=== PATIENT | male | born 1945 | race Caucasian/White ===

== ENCOUNTER 2020-03-11 11:54 | Inpatient (IN) | payer MEDICARE, SELFPAY ==
[2020-03-11] VITALS (14 sets, daily range): BP systolic 116–158; BP diastolic 55–85; PULSE 74–100; RESP 13–20; TEMP 36–36.6; O2SAT 96–100; BMI 27.6
--- NOTE | ~2020-03-11 | XR_ITS ---
EXAMINATION: XR chest 1V portable DATE: 03/11/2020 12:25 INDICATION: Chest pain. TECHNIQUE: A single frontal view of the chest was obtained on 2 radiographs. COMPARISON: Chest 2 views 11/19/2018 FINDINGS: The chest demonstrates clear lungs without pneumonia, pleural effusion, or pneumothorax. Th e heart size is normal. IMPRESSION: 1. No acute cardiopulmonary disease. Reviewed, dictated and finalized at location B. STIAN EDUCATION DIRECTOR
--- NOTE | 2020-03-11 12:03 | PC.NURSE ---
EKG done 1201. TARUN
[2020-03-11 12:20] LABS: Basophils Absolute Auto 0.1 K/mm3 (0.0-0.1); Basophils Percent Auto 0.8 % (0.2-1.2); Eosinophils Absolute Auto 0.4 K/mm3 (0-0.3); Eosinophils Percent Auto 4.6 % (0-4.4); Hematocrit 37.4 % (42.0-52.0); Hemoglobin 12.2 g/dL (14.0-18.0); Immature Granulocyte Absolute 0.04 K/mm3 (0.00-0.031); Immature Granulocyte Percent A 0.5 % (0-0.5); Lymphocytes Absolute Auto 2.46 K/mm3 (0.9-3.2); Lymphocytes Percent Auto 32.6 % (18.3-44.2); Mean Corpuscular HGB Conc 32.6 g/dl (32-36); Mean Corpuscular Volume 92.1 fl (80-100); Mean Platelet Volume 10.1 fl (7.4-10.4); Monocytes Absolute Auto 0.6 K/mm3 (0.1-0.6); Monocytes Percent Auto 7.4 % (2.6-8.5); Neutrophils Absolute Auto 4.1 K/mm3 (1.3-6.7); Neutrophils Percent Auto 54.1 % (45.5-73.1); Platelet Count Result 215 k/mm3 (150-375); Red Blood Count 4.06 M/mm3 (4.6-6.20); Red Cell Distribution Width 12.6 % (11.5-14.5); White Blood Count 7.5 K/mm3 (4.5-10.0)
[2020-03-11 12:29] LABS: Prothrombin Time 13.3 Seconds (11.1-14.7)
[2020-03-11 12:30] LABS: Partial Thromboplastin Time 26.5 SECONDS (22.3-36.8)
[2020-03-11 12:35] LABS: Alanine Aminotransferase 20 U/L (4-50); Albumin Level 4.3 g/dL (3.5-5.1); Alkaline Phosphatase 79 U/L (38-126); Anion Gap 12 mmol/L (8-16); Aspartate Amino Transferase 24 U/L (17-59); Bilirubin,Total 0.4 mg/dL (0.2-1.3); Blood Urea Nitrogen 19 mg/dL (9-20); Calcium 9.2 mg/dL (8.4-10.2); Carbon Dioxide 26 mmol/L (22-30); Chloride 101 mmol/L (98-107); Estimated CRCL calculation 48 ml/min; Estimated Glomerular Filt Rate > 60; Glucose 173 mg/dL (75-110); Potassium 4.3 mmol/L (3.4-5.0); Sodium 139 mmol/L (137-145)
[2020-03-11 12:42] LABS: NT Pro B Type Natriuretic Pept 2550 PG/ML (5-100)
[2020-03-11 12:46] LABS: Magnesium 1.8 mg/dL (1.6-2.3)
[2020-03-11 14:57] LABS: Troponin I < 0.012 ng/mL (0.000-0.034)
--- NOTE | 2020-03-11 15:24 | ED.GENADULT ---
HPI - General Adult General Chief complaint: Chest Pain Stated complaint: V TACH Time Seen by Provider: 03/11/20 11:55 History of Present Illness HPI narrative: Patient is a 75-year-old gentleman who presents the emergency department with chief complaint of ventricular tachycardia. Patient states that he was at a local grocery store and had bought several cases of soda and was loading them into his car after he loaded them the patient stated that he started feeling lightheaded and felt as though his heart was beating fast and felt as though he was going to pass out. Patient called EMS when EMS arrived they found the patient to be in ventricular tachycardia they loaded the patient with amiodarone and then the patient continued to remain in ventricular tachycardia and had a low blood pressure. They proceeded to DC cardiovert the patient after giving him a dose of Versed. The patient is returned to sinus rhythm upon arrival to the emergency department and currently states he feels much better. Patient reports he has history of congestive heart failure reports that he has history of a congenital heart abnormality which she had surgery for as a child. Related Data Allergies Allergy/AdvReac Type Severity Reaction Status Date / Time ibuprofen Allergy Unknown Unknown Verified 03/11/20 12:08 morphine Allergy Unknown Seizure Verified 03/11/20 12:08 prochlorperazine Allergy Unknown Seizure Verified 03/11/20 12:08 Review of Systems Review of Systems: Narrative: CONSTITUTIONAL: Denies fever, chills, or sweats. EYES: Denies visual changes, redness, or discharge. ENT: Denies rhinorrhea, congestion, sore throat, or otalgia. CARDIOVASCULAR: Denies chest pain, palpitations, or edema. RESPIRATORY: Denies cough or dyspnea. GASTROINTESTINAL: Denies abdominal pain, nausea, vomiting, or diarrhea. GENITOURINARY: Denies dysuria or hematuria. SKIN: Denies rash or itching. MUSCULOSKELETAL: Denies back pain, joint pain, or myalgia. NEUROLOGIC: Denies headache, numbness, or weakness. PSYCHIATRIC: Denies anxiety or depression. All systems reviewed & are unremarkable except as noted in HPI and below PMFSH Social History Social History Gender identity (if verbalized by the patient): Male Comments Past medical history history of congestive heart failure Past surgical history cardiac surgery as a child 41-year-old male social history the patient denies illicit drug use Exam Narrative: Exam Narrative: GENERAL: Well-appearing, well-nourished, and in no acute distress. HEAD: Normocephalic, atraumatic. EYES: PERRLA and EOMI. ENT: Nares clear, no rhinorrhea or epistaxis. Mucous membranes moist. NECK: Supple. CHEST: Clear to auscultation. No respiratory distress. HEART: Regular rate and rhythm. No murmur heard. Normal peripheral pulses. ABDOMEN: Soft, nontender, nondistended, normal active bowel sounds. EXTREMITIES: Normal range of motion. No edema. SKIN: Warm, dry, no rash. NEURO: No focal deficits. Alert and oriented x3. PSYCH: Normal mood and affect. Course Course Emergency Course: Patient was started on amiodarone drip was also was given additional magnesium when his mag came back as 1.9. Patient's troponin is negative patient was continued on the amiodarone drip Case was discussed with cardiology and the patient will be admitted to the I am you Vital Signs Vital signs: Vital Signs Temperature 36.6 C 03/11/20 11:55 Pulse Rate 97 03/11/20 11:55 Respiratory Rate 13 03/11/20 11:55 Blood Pressure 116/63 03/11/20 11:55 Pulse Oximetry 99 03/11/20 11:55 Temperature 36.6 C 03/11/20 11:55 Pulse Rate 84 03/11/20 15:37 Respiratory Rate 16 03/11/20 15:26 Blood Pressure 142/55 H 03/11/20 15:37 Pulse Oximetry 98 03/11/20 15:26 Medical Decision Making Vital Signs Vital Signs: Vital Signs Temperature 36.6 C 03/11/20 11:55 Pulse Rate 97 03/11/20 11:55 Respiratory Rate 13 03/11/20 11:55 Blood Pressure 1
[2020-03-11] MEDS: AMIODARONE 360 MG/D5W 200 ML 360 MG/200 ML BAG 33.33 MG IVPB (15:37)
--- NOTE | 2020-03-11 15:42 | ECG_ITS ---
Measurements Intervals [place] Rate: 95 P: 106 MO: 189 QRS: -58 QRSD: 121 T: 78 QT: 383 QTc: 483 Interpretive Statements SINUS RHYTHM INCOMPLETE RIGHT BUNDLE BRANCH BLOCK LEFT ANTERIOR FASCICULAR BLOCK VOLTAGE CRITERIA FOR LVH NONSPECIFIC ST & T-WAVE ABNORMALITY- HIGH LATERAL LEADS BASELINE ARTIFACT- I, III, AVL ABNORMAL ECG Electronically Signed On 03-11-2020 16:18:22 TECHNICAL OPERATIONS VICE PRESIDENT by Dennis Francisco D.O.
[2020-03-11] MEDS: MAGNESIUM SULF 2 GM/WATER 50ML 2 GM/50 ML BAG IVPB (15:45)
[2020-03-11 15:48] LABS: Troponin I 0.684 ng/mL (0.000-0.034)
--- NOTE | 2020-03-11 16:03 | PC.NURSE ---
Dietary tray ordered for pt per request.
--- NOTE | 2020-03-11 18:00 | PM.IMHP ---
H&P: HPI History of Present Illness Date/Time: 03/11/20 18:00 Chief complaint: Ventricular Tachycardia Narrative: Ben Gonzalez is a very pleasant 75-year-old male with congestive heart failure, obstructive sleep apnea on CPAP, type 2 diabetes mellitus, and hypertension who presented to the emergency department earlier today via EMS from a local grocery store parking lot for further treatment and evaluation of ventricular tachycardia. He was in his usual state of health and he and his sister were out grocery shopping today. Not long prior to arrival, while loading the groceries in the car, he suddenly developed heaviness in his chest radiating to the right shoulder and elbow associated with dizziness, shortness of breath, diaphoresis, nausea, and feeling of a pounding and racing heart. Initially he called his doctor's office with his symptoms and he was then told to call 911. On EMS arrival he was in ventricular tachycardia with a heart rate near 220 beats per minute with blood pressures in the 70 systolic. He was then given Versed and was cardioverted with for 100 joules with catholic of sinus tachycardia. He was also loaded with amiodarone and he is being admitted in this setting. After cardioversion his symptoms completely resolved and have not returned. He has never had similar symptoms in the past and has no known history of cardiac dysrhythmia. He does however have a history of chest wall deformities and has had several thoracic surgeries for repair of pectus excavatum. He denies recent change in medication, illicit substance use, exertional chest pain, and syncope. Review of Systems Review of Systems: Narrative: Twelve systems were reviewed with pertinent positives and negatives as per HPI. No fever, chills, or sweats. No recent cold or flu-like symptoms. He states compliance with his CPAP. He believes his diabetes is well controlled. No blurry vision, polydipsia, or polyuria. Except as documented, all other systems were reviewed and are negative. [facility] Past Medical History Medical History (Updated 03/11/20 @ 19:49 by Tammie Baez PA-C) Benign essential tremor Congestive heart failure Echocardiogram in January 2014 was a very technically difficult study showing mild left ventricular enlargement, moderate anterior and septal hypokinesis with an overall ejection fraction estimated 45 to 50%, and mild mitral and tricuspid valve regurgitation. Essential hypertension Hyperlipidemia Obstructive sleep apnea on CPAP Osteoarthritis Rheumatoid arthritis Type 2 diabetes mellitus Surgical History Surgical History (Updated 03/11/20 @ 19:46 by Tammie Baez PA-C) History of bilateral hip replacements History of cardiac catheterization (~2014) Performed at [facility] in [place]. Reportedly clean coronary arteries. History of left knee replacement History of orthopedic surgery Multiple orthopedic surgeries as a child due to defects, including bilateral feet and lower leg surgery and repair of pectus excavatum. History of thoracic surgery Multiple thoracic surgeries to repair pectus excavatum. History of tonsillectomy and adenoidectomy Family History Family History Mother Carcinoma of colon Social History Social History (Updated 03/11/20 @ 19:47 by Tammie Baez PA-C) Social History: Surrogate decision maker: Abbey Gonzalez, sister. Code status: Full code. Smoking status: Never smoker Alcohol intake: never Substance use: never Additional living arrangements comments: Resides in [place] with his sister. He has no children. 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 Gender identity (if verbalized by the patient): Male Meds Home Medications and Allergies Home Medications Medication Instructions Recorded Confirmed Type amlodipine 2.5 mg PO DAILY 03/11/20 03/11/20 History aspirin 8
--- NOTE | 2020-03-11 18:38 | ADMGEN ---
This patient, Ben Gonzalez, was admitted to IMU Room 20503-11-20 at 1805. Patient/family oriented to hospital policies and general routines including ID bracelet, bed and alarms, visiting hours, pain management, procedures, bathroom and other care routines, personal items, smoking policy, room service/diet, and visiting hours. Information on how to activate the Rapid Response Team has been discussed. Patient/Family are encouraged to report perceived risks to care and to ask questions if they do not understand what they are told or what they should do.
[2020-03-11 20:50] LABS: Glucose Point of Care 126 (65-105)
[2020-03-11] MEDS: ATORVASTATIN 40 MG TABLET PO (21:28)
[2020-03-11] MEDS: AMIODARONE 360 MG/D5W 200 ML 360 MG/200 ML BAG 16.67 MG IV CONT (23:20)
[2020-03-12] VITALS (28 sets, daily range): BP systolic 126–156; BP diastolic 61–99; PULSE 68–122; RESP 12–20; TEMP 35.8–36.8; O2SAT 93–100
--- NOTE | 2020-03-12 | ECHO_ITS ---
Patient Info Name: Ben Gonzalez Age: 75 years : 1945 Gender: Male Ht: 69 in Wt: 184 lbs BSA: 2.03 m2 HR: 94 bpm BP: 146 / 61 mmHg Heart Rhythm: Sinus Rhythm Technical Quality: Good Exam Date: 03/12/2020 9:27 AM Exam Location: [facility] Pulmonary Patient Status: Inpatient Admit Date: 03/11/2020 Staff Ordering Physician: Tammie Baez PA-C Cheesemaking Laborer: Valdemar Fleming, ERICKA, RT Attending Provider: Hugo Kulkarni MD Referring Physician: Sasha LEYVA; Exam Type: CA echo doppler color flow Study Info Indications I49.01 - Ventricular fibrillation Complete two-dimensional, color flow and Doppler transthoracic echocardiogram is performed. Strain analysis performed. Summary 1. Complete two-dimensional, color flow and Doppler transthoracic echocardiogram is performed. 2. Left ventricular chamber dimension is moderately enlarged. 3. Left ventricular systolic function is moderately reduced, estimated at 35-40%. 4. Trivial aortic and Mitral regurgitation. Left Ventricle Left ventricular chamber dimension is moderately enlarged. Left ventricular systolic function is moderately reduced, estimated at 35-40%. The left ventricular diastolic function is normal. Right Ventricle Right ventricular chamber dimension is normal. Left Atria Left atrial chamber dimension is normal. Right Atria Right atrial chamber dimension is normal. Aortic Valve The aortic valve is trileaflet. There is mild aortic valve sclerosis. There is trace aortic valve regurgitation. Pulmonic Valve The pulmonic valve is normal. There is mild pulmonic regurgitation. Mitral Valve The mitral valve has normal leaflets. There is trace mitral valve regurgitation. Tricuspid Valve The tricuspid valve leaflets are normal. Pericardium/Pleural The pericardium appears normal. Aorta The aortic root size at the sinus of Valsalva is normal. Left Ventricular Outflow Tract Name Value Normal LVOT 2D LVOT Diameter 2.3 cm LVOT Doppler LVOT Peak Gradient 6 mmHg LVOT Mean Gradient 3 mmHg LVOT VTI 20 cm LVOT VTI/AV VTI Ratio 0.6 LVOT Stroke Volume 84 ml LVOT CO 8.4 l/min LVOT CI 4.1 l/min/m2 Mitral Valve Name Value Normal MV Doppler MV [place] 404 cm/s2 MV PHT 48 ms MV Area (PHT) 4.6 cm2 4.0-5.0 MV Diastolic Function MV E Peak Velocity 67 cm/s MV A Peak Velocity 89 cm/s MV E/A 0.7
[2020-03-12 05:35] LABS: Hematocrit 33.9 % (42.0-52.0); Hemoglobin 11.2 g/dL (14.0-18.0); Mean Corpuscular Hemoglobin 29.6 pg (26-34); Mean Corpuscular Volume 89.7 fl (80-100); Mean Platelet Volume 10.3 fl (7.4-10.4); Platelet Count Result 189 k/mm3 (150-375); Red Blood Count 3.78 M/mm3 (4.6-6.20); Red Cell Distribution Width 12.6 % (11.5-14.5); White Blood Count 5.9 K/mm3 (4.5-10.0)
[2020-03-12 05:53] LABS: Hemoglobin A1C 5.9 % (<5.7)
[2020-03-12 06:02] LABS: Alanine Aminotransferase 17 U/L (4-50); Albumin Level 4.1 g/dL (3.5-5.1); Alkaline Phosphatase 63 U/L (38-126); Anion Gap 8 mmol/L (8-16); Aspartate Amino Transferase 26 U/L (17-59); Bilirubin,Total 0.2 mg/dL (0.2-1.3); Blood Urea Nitrogen 16 mg/dL (9-20); Carbon Dioxide 27 mmol/L (22-30); Chloride 103 mmol/L (98-107); Estimated CRCL calculation 54 ml/min; Estimated Glomerular Filt Rate > 60; Glucose 109 mg/dL (75-110); Magnesium 2.2 mg/dL (1.6-2.3); Phosphorus 4.5 mg/dL (2.5-4.5); Potassium 3.5 mmol/L (3.4-5.0); Sodium 138 mmol/L (137-145)
[2020-03-12] MEDS: AMIODARONE 360 MG/D5W 200 ML 360 MG/200 ML BAG 16.67 MG IV CONT ×2 (06:13→17:56)
--- NOTE | 2020-03-12 09:24 | PM.CNCAR ---
Assessment and Plan Additional Plan This is a 75-year-old man with the background of a nonischemic cardiomyopathy for which she was being treated with aspirin, lisinopril and propranolol. He has done well clinically and developed sustained monomorphic VT yesterday that was symptomatic and had to be terminated electrically outside of the hospital. He presents to [place] in this fashion he does not receive his medical care here at our hospital otherwise. The patient at the moment is clinically quite stable. I will review his echocardiogram and will likely plan for a follow-up coronary angiogram later this afternoon. He just finished eating breakfast so he can't be brought to the cardiac catheterization lab at this time. Since the episode was associated with some chest discomfort 1 has to consider the possibility of ischemically mediated arrhythmias in this patient was otherwise been stable on some fairly standard medical treatment. Obviously with hypertension and dyslipidemia he does have significant risk for coronary disease. For now I would continue his GEORGE-inhibitor, beta-alexey and IV amiodarone. Peter Valdivia MD [facility] History of Present Illness History of Present Illness Consult date/time: 03/12/20 09:24 Reason For Visit: Ventricular Tachycardia Narrative: This is a 75-year-old man I am seeing at the request of the hospitalist since after he was seen in the emergency room and admitted yesterday evening with an episode of ventricular tachycardia that was identified outside of the hospital. The patient was in his usual state of relatively stable health when he was doing some shopping at a local store. He was loading some groceries and packages of soda in his trunk of his car. He suddenly was began to feel lightheaded and presyncopal. He felt that his heart was beating very rapidly. At the same time he had the sense of some very mild retrosternal chest pressure. Because of the symptoms and he thought he was about to pass out he and his sister called 911 and sat down so that he would not fall down. He says when paramedics arrived on the scene he was found to be in ventricular tachycardia. We do have the electrocardiograms that corroborate to sustained monomorphic VT. He was given some amiodarone in the field which did not affect the rhythm. He then was electrically countershock x1 restoring normal sinus rhythm very quickly after which she by report became asymptomatic. He was evaluated in the emergency room and admitted to the IMU. He was been placed on intravenous amiodarone which began yesterday in the ED and is still running intravenously at this time. An echocardiogram has been requested which has yet to be performed at the time of this dictation. The patient states that he has a history of congestive heart failure but can't tell me much in the way of any details about this. He states that he was evaluated by willow machine operator at [facility] in 2015. His primary care doctor is located there as well. He can't really remember the reasons there was concern about his heart but he remembers having an ultrasound he remembers having a stress test and also remembers having a coronary angiogram. He states he was told that he was not found to have any coronary disease but he can't remember anything else about the results of that. He was placed on his current medical regimen and has done well since then he has not been admitted to the hospital with recurrent cardiac problems to the best of his knowledge. Of this rather incomplete history I did telephone his PCP this morning and did receive a little bit more information. He was apparently reporting some symptoms of fatigue and dyspnea and underwent an evaluation which demonstrated a nonischemic cardiomyopathy. He had was not found to have any coronary disease the records according to the physician showed his ejection fraction to be 30% by echo at that time and that he has been stable on
[2020-03-12] MEDS: lisinopriL 20 MG TABLET 40 MG PO (10:25)
[2020-03-12] MEDS: CHOLECALCIFEROL 1,000 UNITS TABLET 2000 UNITS PO (10:25)
[2020-03-12] MEDS: amLODIPine BESYLATE 2.5 MG TABLET PO (10:25)
[2020-03-12] MEDS: POTASSIUM CHLORIDE 10 MEQ TABLET.ER PO ×2 (10:26→17:58)
[2020-03-12] MEDS: ASPIRIN 81 MG CHEWABLE TABLET PO (10:30)
--- NOTE | 2020-03-12 11:23 | PM.IMPN ---
Progress Note: A&P Assessment and Plan (1) Hyperlipidemia: Qualifiers: Hyperlipidemia type: mixed hyperlipidemia Qualified Code(s): E78.2 - Mixed hyperlipidemia Code(s): E78.5 - Hyperlipidemia, unspecified Status: Acute Assessment and Plan: continue aspirin 81, Lipitor 40 mg (2) Elevated troponin: Code(s): R77.8 - Other specified abnormalities of plasma proteins Status: Acute Assessment and Plan: - Likely secondary to cardioversion, ventricular tachycardia. - left heart catheterization showed 40% lesion in left main coronary distal, 40% lesion in LAD diagonal bifurcation, circumflex and right coronary clean. Catheterization by Dr. Peter Valdivia. (3) Type 2 diabetes mellitus: Qualifiers: Diabetes mellitus complication status: without complication Diabetes mellitus group home insulin use: without group home use Qualified Code(s): E11.9 - Type 2 diabetes mellitus without complications Code(s): E11.9 - Type 2 diabetes mellitus without complications Status: Acute Assessment and Plan: Home metformin holding after catheterization IV contrast, sliding scale insulin for now (4) Essential hypertension: Code(s): I10 - Essential (primary) hypertension Status: Acute Assessment and Plan: continue amlodipine, lisinopril (5) Obstructive sleep apnea on CPAP: Code(s): G47.33 - Obstructive sleep apnea (adult) (pediatric); Z99.89 - Dependence on other enabling machines and devices Status: Acute (6) Ventricular tachycardia: Code(s): I47.2 - Ventricular tachycardia Status: Acute Assessment and Plan: -Status post cardioversion -Continue amiodarone drip - patient will need AICD placement for bifascicular block with ventricular tachycardic episodes. EKG shows left anterior fascicular block and incomplete right bundle-branch block, otherwise sinus rhythm - continue propanolol she is also for tremors (7) Congestive heart failure: Qualifiers: Heart failure chronicity: chronic Heart failure type: systolic Qualified Code(s): I50.22 - Chronic systolic (congestive) heart failure Code(s): I50.9 - Heart failure, unspecified Status: Acute Assessment and Plan: Lasix 40 mg b.i.d., potassium supplement Additional Plan patient will need to be transferred for AICD placement, patient's preference to [facility] DVT prophylaxis: Lovenox Code status: Full code Disposition: IMU, pending transfer Time Spent With Patient Time with patient: 25 - 35 minutes Subjective Date/time seen: 03/12/20 11:23 Patient examined. He has no complaints. Left heart catheterization LV dilated severe global systolic hypocontractility, ejection fraction around 30%. left main coronary artery 40% lesion distal segment, LAD diagonal bifurcation 40-50%. circumflex and right coronary artery had no disease. Patient has no stentable lesions. Patient needs AICD, will try to transfer patient to [facility]. Bed finding will be difficult as most hospitals are at capacity. currently working [facility]. Review of Systems Review of Systems: All systems reviewed & are unremarkable except as noted in HPI and below Exam Narrative: Exam Narrative: - GENERAL: No acute distress. Well-nourished. - EYES: EOMI. Anicteric. - HENT: Moist mucous membranes. No scleral icterus. - LUNGS: Clear to auscultation bilaterally, no wheezing, rhonchi, or rales. - CARDIOVASCULAR: Regular rate and rhythm. No murmur. No JVD. - ABDOMEN: Soft, non-tender and non-distended. No palpable masses. - EXTREMITIES: No edema. Peripheral pulses 2+. Non-tender. - NEUROLOGIC: No focal neurological deficits. CN II-XII grossly intact. - PSYCHIATRIC: Awake, Alert and oriented x 3. Appropriate mood and affect. - SKIN: No rashes or lesions. Warm. - LYMPH: No cervical lymphadenopathy. Objective Data Vital Signs Vital Signs:
--- NOTE | 2020-03-12 14:52 | WPDMODSED ---
Moderate Sedation Note-Pt Data Patient Data Diagnosis: Nonischemic cardiomyopathy ventricular tachycardia Present Complaint: out of hospital VT arrest Procedure to be performed/Plan: left heart catheterization Allergies Allergy/AdvReac Type Severity Reaction Status Date / Time ibuprofen Allergy Unknown Unknown Verified 03/11/20 12:08 morphine Allergy Unknown Seizure Verified 03/11/20 12:08 prochlorperazine Allergy Unknown Seizure Verified 03/11/20 12:08 Home Medications Medication Instructions Recorded Confirmed Type amlodipine 2.5 mg PO DAILY 03/11/20 03/11/20 History aspirin 81 mg PO DAILY 03/11/20 03/11/20 History atorvastatin 40 mg PO HS 03/11/20 03/11/20 History cholecalciferol (vitamin D3) 50 mcg PO DAILY 03/11/20 03/11/20 History [Vitamin D3] fluticasone propionate 2 spray INTRANASAL DAILY 03/11/20 03/11/20 History furosemide 40 mg PO BID 03/11/20 03/11/20 History lisinopril 40 mg PO DAILY 03/11/20 03/11/20 History metformin 500 mg PO TID 03/11/20 03/11/20 History potassium chloride 10 meq PO TID 03/11/20 03/11/20 History propranolol [Inderal] 10 mg PO TID PRN 03/11/20 03/11/20 History tramadol 50 mg PO Q6H PRN 03/11/20 03/11/20 History Current Medications: Active Medications Amlodipine Besylate (Amlodipine Besylate 2.5 Mg Tablet) 2.5 mg PO DAILY [facility] Last Admin: 03/12/20 10:25 Dose: 2.5 mg Documented by: Aspirin (Aspirin 81 Mg Chewable Tablet) 81 mg PO DAILY@0800 [facility] Last Admin: 03/12/20 10:30 Dose: 81 mg Documented by: Atorvastatin Calcium (Atorvastatin 40 Mg Tablet) 40 mg PO HS [facility] Last Admin: 03/11/20 21:28 Dose: 40 mg Documented by: Dextrose (Dextrose 50% 25 Gm/50 Ml Syringe) 12.5 gm IV PUSH PRN PRN; Protocol PRN Reason: Hypoglycemia Enoxaparin Sodium (Enoxaparin 40 Mg/0.4 Ml Syringe) 40 mg SUB-Q DAILY [facility] Last Admin: 03/12/20 10:26 Dose: Not Given Documented by: Fluticasone Propionate (Fluticasone Propionate 0.05% Na Spr 16 Gm Btl (*Bkc)) 2 spray NASAL DAILY [facility] Last Admin: 03/12/20 10:28 Dose: Not Given Documented by: Furosemide (Furosemide 40 Mg Tablet) 40 mg PO BID [facility] Last Admin: 03/12/20 10:26 Dose: Not Given Documented by: Glucagon (Glucagon For Inj 1 Mg Vial) 1 mg IM PRN PRN; Protocol PRN Reason: Hypoglycemia Glucose (Glucose Oral Gel 15 Gm Of Glucse In 37.5 Gm Tube) 15 gm PO PRN PRN; Protocol PRN Reason: Hypoglycemia Dextrose (Dextrose 5% 1,000 Ml) 1,000 mls @ 100 mls/hr IVPB PRN PRN; Protocol PRN Reason: Hypoglycemia Amiodarone HCl/Dextrose (Nexterone 360 Mg/D5w 200 Ml) 360 mg in 200 mls @ 16.667 mls/hr IV CONT .Q12H [facility] Last Admin: 03/12/20 06:13 Dose: 0.5 mg/min, 16.67 mls/hr Documented by: Insulin Aspart (Insulin Aspart (*Bkc) 100 Units/Ml) 2 - 5 units SUB-Q TIDWM [facility]; Protocol Last Admin: 03/12/20 10:24 Dose: Not Given Documented by: Lisinopril (Lisinopril 20 Mg Tablet) 40 mg PO DAILY [facility] Last Admin: 03/12/20 10:25 Dose: 40 mg Documented by: Potassium Chloride (Potassium Chloride 10 Meq Tablet.Er) 10 meq PO TID [facility] Last Admin: 03/12/20 10:26 Dose: 10 meq Documented by: Propranolol HCl (Propranolol Hcl 10 Mg Tablet) 10 mg PO TID PRN PRN Reason: TREMORS Tramadol HCl (Tramadol Hcl (*Crx) 50 Mg Tablet) 50 mg PO Q6H PRN PRN Reason: Pain Vitamin D (Cholecalciferol 1,000 Units Tablet) 2,000 units PO DAILY [facility] Last Admin: 03/12/20 10:25 Dose: 2,000 units Documented by: Sedation/Anesthesia: No previous sedation/anesthesia problems (including family history). [facility] Past Medical History Medical History (Updated 03/11/20 @ 19:49 by Tammie Baez PA-C) Benign essential tremor Congestive heart failure Echocardiogram in January 2014 was a very technically difficult study showing mild left ventricular enlargement, moderate anterior and septal hypokinesis with an overall ejection fraction estimated 45 to 50%, and mild mitral and tricuspid valve regurgitation. Essential hypertension Hyperlipidemia Obstructive sleep apnea on CPAP
--- NOTE | 2020-03-12 15:38 | P.PCNCC_ITS ---
Cardiac Cath Procedure Note Date of procedure:: 03/12/20 Performing physician:: Peter Valdivia MD Indication:: history of nonischemic cardiomyopathy admission with sustained ventricular tachycardia requiring electrical termination Brief clinical history:: this is a 75-year-old patient who receives his medical care in [place]. He was at a local store shopping and became presyncopal with tachycardia in the parking lot. 911 was was called and he was found to be in sustained monomorphic ventricular tachycardia which was terminated electrically in the field. There was a troponin rise following this event and he is now being brought for catheterization. Procedure Procedure performed:: Left heart catheterization with coronary angiography and left ventriculography Sedation/Medication given:: fentanyl 50 mg Versed 2 mg case start time 3:13 p.m. case end time 3:30 p.m. sedation provided by Isabelle Johnson RN, trained observer Access site:: right femoral artery Estimated blood loss:: 10-15 cc Procedure note:: patient was brought to the cardiac catheterization lab in the postabsorptive state the right femoral triangle was prepared in the usual fashion. Anesthesia was provided with 1% lidocaine infiltrated locally. Using the modified Seldinger technique the femoral artery was punctured and a 5 Latvian vascular sheath was placed. Left heart catheterization was then carried out. I used a 5 Latvian FL4 catheter to engage inject the left coronary artery in multiple projections. After this the right coronary was engaged and injected using a standard 5 Latvian JR4 catheter. Following the coronary angiograms the left ventricle was examined in the GARCIA projection using a angled pigtail catheter and left-sided hemodynamics were documented. The patient was then taken off the table into the holding area for manual sheath removal there were no signs of any procedural complications and no sign of a groin hematoma upon leaving the chemical laboratory scientist. Findings:: Hemodynamics: Central aortic pressure is 1 56/64 left ventricle 154/0 end-diastolic 11. There is no significant gradient on pullback across the aortic valve. Left ventricle: The LV is moderately dilated there is severe global systolic hypo contractility the ejection fraction I would visually estimate to be in the vicinity of 30%. Left main coronary artery is Essentially patent but has a 40% lesion in the distal segment. the left anterior descending moderate caliber artery extending down to and around the apex. The LAD diagonal bifurcation is very mild atherosclerotic stenosis no more than about 40-50% in any projection. The circumflex artery is moderate to large in caliber is remarkable for minimal luminal irregularity proximally but no significant lesions are identified. Right coronary artery is large in caliber dominant to posterior wall giving rise to several large posterolateral branches as well. The right coronary artery is angiographically free of disease. Conclusion:: 1. Diagnosis of nonischemic cardiomyopathy with significant depression in LV systolic function. This diagnosis was recently made in 2015 2. minimal plaquing in the left main and mid LAD but no flow-limiting coronary lesions are identified Peter Valdivia MD [facility]
--- NOTE | 2020-03-12 15:54 | PM.PNCARD ---
Progress Note: A&P Additional Plan 75-year-old man with significant nonischemic cardiomyopathy. He has been stable on GEORGE-inhibitor and beta-alexey therapy for 5 years. He presented with abrupt monomorphic ventricular tachycardia which was symptomatic and cardioverted electrically in the field. Catheterizations afternoon demonstrates minimal nonobstructive lesions in the left coronary artery and no right coronary disease. The patient in my opinion requires defibrillator implantation for secondary prevention. He will need to be transferred for electrophysiology consultation and implantation. He each receives the rest of his medical care at [facility] in [place] and his preference is to be transferred there for nondenominational further consultation and treatment. We will attempt to arrange transfer for this purpose. If for some reason they have no bed availability we will consider transfer to [place] and/or [facility]. Peter Valdivia MD [facility] Subjective Date/time seen: Date of service: 03/12/20 15:54 Interval history: 75-year-old man with: Nonischemic cardiomyopathy Out of hospital ventricular tachycardia which was sustained and required electrical cardioversion Left heart catheterization today demonstrating minimal, nonobstructive coronary artery disease. Exam Const: General: comfortable and no acute distress HENMT: Mouth: Yes moist mucous membranes Eyes: Sclera: sclerae normal Pupils: Equal, round and reactive pupils present Neck: Neck: supple and no JVD Thyroid: thyroid normal Resp: Effort & Inspection: normal respiratory effort Auscultation: clear to auscultation bilaterally Cardio: Rate: regular rate Rhythm: regular rhythm Other: PMI enlarged and displaced no audible murmur GI: GI Palp: Yes Soft to palpation Auscultation: normal bowel sounds Skin: General skin exam: normal color Neuro: Cognition (Neuro): normal cognition Extrem: General: normal to inspection Objective Data Vital Signs Vital Signs: Vital Signs - 24 hr 03/11/20 16:12 03/11/20 17:46 03/11/20 18:23 Temperature Pulse Rate 87 80 83 Respiratory Rate 20 18 15 Blood Pressure 141/60 H 127/76 127/76 Pulse Oximetry 100 98 97 03/11/20 19:28 03/11/20 20:00 03/11/20 22:00 Temperature 36.0 C L Pulse Rate 81 74 76 Respiratory Rate 18 Blood Pressure 135/66 Pulse Oximetry 96 96 03/11/20 23:03/12/20 00:00 03/12/20 02:00 Temperature 36.1 C L Pulse Rate 86 71 73 Respiratory Rate 16 Blood Pressure 128/85 Pulse Oximetry 93 03/12/20 04:00 03/12/20 06:00 03/12/20 06:13 Temperature 36.1 C L Pulse Rate 68 72 89 Respiratory Rate 16 Blood Pressure 146/61 H 146/61 H Pulse Oximetry 100 03/12/20 08:00 03/12/20 10:00 03/12/20 12:00 Temperature 36.5 C 36.4 C L Pulse Rate 122 H 104 H 82 Respiratory Rate 14 12 Blood Pressure 151/64 H 135/76 Pulse Oximetry 98 97 03/12/20 14:00 03/12/20 14:57 Temperature Pulse Rate 76 Respiratory Rate Blood Pressure Pulse Oximetry 97 Intake/Output Intake/Output: Intake & Output 03/09/20 03/10/20 03/11/20 03/12/20 23:59 23:59 23:59 23:59 Intake Total 250 690 Output Total 1650 Balance 250 -960 Meds/Results Medications: Active Medications Generic Name Dose Route Start Last Admin Trade Name Freq PRN Reason Stop Dose Admin Amlodipine Besylate 2.5 mg 03/12/20 09:00 03/12/20 10:25 Amlodipine Besylate 2.5 Mg Tablet PO 2.5 mg DAILY PRIYANKA Administration Aspirin 81 mg 03/12/20 08:00 03/12/20 10:30 Aspirin 81 Mg Chewable Tablet PO 81 mg DAILY@0800 PRIYANKA Administration Atorvastatin Calcium 40 mg 03/11/20 21:00 03/11/20 21:28 Atorvastatin 40 Mg Tablet PO 40 mg HS PRIYANKA Administration Dextrose 12.5 gm 03/11/20 19:56 Dextrose 50% 25 Gm/50 Ml Syringe IV PUSH PRN PRN Hypoglycemia Protocol Enoxaparin Sodium 40 mg 03/12/20 09:00 03/12/20 10:26 Enoxaparin 40 Mg/0.4
[2020-03-12] MEDS: traMADol HCL (*CRX) 50 MG TABLET PO (16:47)
[2020-03-12] MEDS: ATORVASTATIN 40 MG TABLET PO (17:58)
[2020-03-12 18:12] LABS: Glucose Point of Care 100 (65-105)
[2020-03-12 21:01] LABS: Glucose Point of Care 129 (65-105)
[2020-03-13] VITALS: BP 157/80; PULSE 67; PULSE 69; PULSE 79; RESP 16; TEMP 36.4; O2SAT 97
[2020-03-13 02:00] VITALS: PULSE 65
[2020-03-13 04:00] VITALS: BP 118/55; PULSE 66; PULSE 67; RESP 16; TEMP 36; O2SAT 98
[2020-03-13] MEDS: AMIODARONE 360 MG/D5W 200 ML 360 MG/200 ML BAG 16.67 MG IV CONT (04:45)
[2020-03-13 06:00] VITALS: PULSE 61
[2020-03-13 08:00] VITALS: BP 158/70; PULSE 72; PULSE 80; RESP 18; TEMP 36.3; O2SAT 100
--- NOTE | 2020-03-13 08:12 | PM.DS ---
DS: Admitting Diagnosis Admitting Diagnosis Admitting Diagnosis: Ventricular Tachycardia DS: Discharge Diagnosis Discharge Diagnosis (1) Hyperlipidemia: Qualifiers: Hyperlipidemia type: mixed hyperlipidemia Qualified Code(s): E78.2 - Mixed hyperlipidemia Code(s): E78.5 - Hyperlipidemia, unspecified Status: Acute Assessment and Plan: continue aspirin 81, Lipitor 40 mg (2) Elevated troponin: Code(s): R77.8 - Other specified abnormalities of plasma proteins Status: Acute Assessment and Plan: - Likely secondary to cardioversion and ventricular tachycardia. - left heart catheterization showed 40% lesion in left main coronary distal, 40% lesion in LAD diagonal bifurcation, circumflex and right coronary clean. Catheterization by Dr. Peter Valdivia. (3) Type 2 diabetes mellitus: Qualifiers: Diabetes mellitus complication status: without complication Diabetes mellitus intermodal dispatcher insulin use: without assisted use Qualified Code(s): E11.9 - Type 2 diabetes mellitus without complications Code(s): E11.9 - Type 2 diabetes mellitus without complications Status: Acute Assessment and Plan: Home metformin holding after catheterization IV contrast, sliding scale insulin for now (4) Essential hypertension: Code(s): I10 - Essential (primary) hypertension Status: Acute Assessment and Plan: continue amlodipine, lisinopril (5) Obstructive sleep apnea on CPAP: Code(s): G47.33 - Obstructive sleep apnea (adult) (pediatric); Z99.89 - Dependence on other enabling machines and devices Status: Acute (6) Ventricular tachycardia: Code(s): I47.2 - Ventricular tachycardia Status: Acute Assessment and Plan: -Status post cardioversion -Continue amiodarone drip - patient will need AICD placement for bifascicular block with ventricular tachycardic episodes. EKG shows left anterior fascicular block and incomplete right bundle-branch block, otherwise sinus rhythm - continue propanolol for tremors as well (7) Congestive heart failure: Qualifiers: Heart failure chronicity: chronic Heart failure type: systolic Qualified Code(s): I50.22 - Chronic systolic (congestive) heart failure Code(s): I50.9 - Heart failure, unspecified Status: Acute Assessment and Plan: Lasix 40 mg b.i.d., potassium supplement DS: Summary Hospital Course Reason for hospitalization: Ventricular tachycardia Hospital Course: This document to serve as transfer summary. Patient is a 75-year-old male with past medical history CAD,CHF, type 2 diabetes, hypertension, history of pectus excavatum presented to the ED with palpitations and diaphoresis. Patient had ventricular tachycardia status post cardioversion x1 with 100 joules and put on amiodarone drip. He had elevated troponin and subsequent left heart catheterization by Dr. Peter Valdivia who found mild disease in LAD otherwise clear circumflex and right coronary. No stents were placed. EKG shows bifascicular block with left anterior fascicular block and incomplete right bundle-branch block, otherwise normal sinus rhythm. Patient will need AICD placement. Dr. Valdivia had discussed case with Dr. Godwin at [facility] who has accepted patient for transfer for AICD placement. Patient will need to follow-up with cardiology. Only new medication is amiodarone drip, patient to be transferred to [facility] 03/13/2020. Time Spent with Patient Time attestation: Total time spent providing and/or coordinating discharge services:35 Exam Narrative: Exam Narrative: - GENERAL: No acute distress. Well-nourished. - EYES: EOMI. Anicteric. - HENT: Moist mucous membranes. No scleral icterus. Excessive neck skin. - CHEST: Pectus excavatum, scars from surgery - LUNGS: Clear to auscultation bilaterally, no wheezing, rhonchi, or rales. - CARDIOVASCULAR: Regular r
[2020-03-13 08:43] LABS: Glucose Point of Care 106 (65-105)
--- NOTE | 2020-03-13 08:49 | PM.TDS ---
Transfer Discharge Sum: Prov Provider Date of admission: 03/11/20 15:20 Primary care physician: W[employer]HOUSE UNLOADER PHYSICIAN Admitting clinician: Vishal Kulkarni MD Consults: 03/11/20 15:22 Consult to Physician Routine Comment: Consulting Provider: Dr. Peter Valdivia Reason for consultation: ventricular tachycardia Has provider been notified: Yes DS: Admitting Diagnosis Admitting Diagnosis Admitting Diagnosis: Ventricular Tachycardia DS: Discharge Diagnosis Discharge Diagnosis (1) Hyperlipidemia: Qualifiers: Hyperlipidemia type: mixed hyperlipidemia Qualified Code(s): E78.2 - Mixed hyperlipidemia Code(s): E78.5 - Hyperlipidemia, unspecified Status: Acute Assessment and Plan: continue aspirin 81, Lipitor 40 mg (2) Elevated troponin: Code(s): R77.8 - Other specified abnormalities of plasma proteins Status: Acute Assessment and Plan: - Likely secondary to cardioversion and ventricular tachycardia. - left heart catheterization showed 40% lesion in left main coronary distal, 40% lesion in LAD diagonal bifurcation, circumflex and right coronary clean. Catheterization by Dr. Peter Valdivia. (3) Type 2 diabetes mellitus: Qualifiers: Diabetes mellitus manager intermediate insulin use: without retirement use Diabetes mellitus complication status: without complication Qualified Code(s): E11.9 - Type 2 diabetes mellitus without complications Code(s): E11.9 - Type 2 diabetes mellitus without complications Status: Acute Assessment and Plan: Home metformin holding after catheterization IV contrast, sliding scale insulin for now (4) Essential hypertension: Code(s): I10 - Essential (primary) hypertension Status: Acute Assessment and Plan: continue amlodipine, lisinopril (5) Obstructive sleep apnea on CPAP: Code(s): G47.33 - Obstructive sleep apnea (adult) (pediatric); Z99.89 - Dependence on other enabling machines and devices Status: Acute (6) Ventricular tachycardia: Code(s): I47.2 - Ventricular tachycardia Status: Acute Assessment and Plan: -Status post cardioversion -Continue amiodarone drip - patient will need AICD placement for bifascicular block with ventricular tachycardic episodes. EKG shows left anterior fascicular block and incomplete right bundle-branch block, otherwise sinus rhythm - continue propanolol for tremors as well (7) Congestive heart failure: Qualifiers: Heart failure type: systolic Heart failure chronicity: chronic Qualified Code(s): I50.22 - Chronic systolic (congestive) heart failure Code(s): I50.9 - Heart failure, unspecified Status: Acute Assessment and Plan: Lasix 40 mg b.i.d., potassium supplement Transfer Discharge Sum: Med Medications Active and Home Medications: Home Medications amlodipine 2.5 mg PO DAILY 03/11/20 [History Confirmed 03/11/20] aspirin 81 mg PO DAILY 03/11/20 [History Confirmed 03/11/20] atorvastatin 40 mg PO HS 03/11/20 [History Confirmed 03/11/20] cholecalciferol (vitamin D3) [Vitamin D3] 50 mcg PO DAILY 03/11/20 [History Confirmed 03/11/20] fluticasone propionate 2 spray INTRANASAL DAILY 03/11/20 [History Confirmed 03/11/20] furosemide 40 mg PO BID 03/11/20 [History Confirmed 03/11/20] lisinopril 40 mg PO DAILY 03/11/20 [History Confirmed 03/11/20] metformin 500 mg PO TID 03/11/20 [History Confirmed 03/11/20] potassium chloride 10 meq PO TID 03/11/20 [History Confirmed 03/11/20] propranolol [Inderal] 10 mg PO TID PRN 03/11/20 [History Confirmed 03/11/20] tramadol 50 mg PO Q6H PRN 03/11/20 [History Confirmed 03/11/20] Active Medications Amlodipine Besylate (Amlodipine Besylate 2.5 Mg Tablet) 2.5 mg PO DAILY [facility] Last Admin: 03/12/20 10:25 Dose: 2.5 mg Documented by: Aspirin (Aspirin 81 Mg Chewable Tablet) 81 mg PO DAILY@0800 [facility] Last Admin: 03/12/20 10:30 Dose: 81 mg Documented by: Atorv
[2020-03-13] MEDS: POTASSIUM CHLORIDE 10 MEQ TABLET.ER PO (09:12)
[2020-03-13] MEDS: FUROSEMIDE 40 MG TABLET PO (09:13)
[2020-03-13] MEDS: ENOXAPARIN 40 MG/0.4 ML SYRINGE SUB-Q (09:13)
[2020-03-13] MEDS: CHOLECALCIFEROL 1,000 UNITS TABLET 2000 UNITS PO (09:13)
[2020-03-13] MEDS: lisinopriL 20 MG TABLET 40 MG PO (09:13)
[2020-03-13] MEDS: amLODIPine BESYLATE 2.5 MG TABLET PO (09:14)
[2020-03-13] MEDS: ASPIRIN 81 MG CHEWABLE TABLET PO (09:15)
[2020-03-13 10:16] VITALS: PULSE 79
== END 2020-03-13 11:13 | disposition short-term general hospital (02) | DRG 287 ==
LOC: ANHED 15:46 → ANHIMU 03-12 00:06
PROVIDERS: Physician Assistant; Specialist; Admitting Provider Internal Medicine; Emergency Provider Emergency Medicine; Visit Provider Student in an Organized Health Care Education/Training Program
PROC: 4A023N7 Measurement of Cardiac Sampling and Pressure, Left Heart, Percutaneous Approach (ICD-10-PCS; CPT 93452; principal; 2020-03-12 15:00)
DX: I47.2 Ventricular tachycardia (principal); I42.8 Other cardiomyopathies; I50.22 Chronic systolic (congestive) heart failure; I11.0 Hypertensive heart disease with heart failure; I25.10 Atherosclerotic heart disease of native coronary artery without angina pectoris; R77.8 Other specified abnormalities of plasma proteins; E78.2 Mixed hyperlipidemia; G47.33 Obstructive sleep apnea (adult) (pediatric); M06.9 Rheumatoid arthritis, unspecified; E11.9 Type 2 diabetes mellitus without complications; G25.0 Essential tremor; Z96.652 Presence of left artificial knee joint; Z79.82 Long term (current) use of aspirin; Z79.84 Long term (current) use of oral hypoglycemic drugs; Z79.899 Other long term (current) drug therapy; Z99.89 Dependence on other enabling machines and devices
CPT/HCPCS: 36415; 71045; 80053; 83036; 83735; 83880; 84100; 84443; 84484; 85025; 85027; 85610; 85730; 93005; 93306; 93458; 99285; A9270; C1887; C1894; J0282; J1644; J1650; J2250; J3010; J3475; J7040

== ENCOUNTER → 2020-06-23 10:36 | Outpatient (CLI) | payer MEDICARE, SELFPAY ==
--- NOTE | ~2020-06-23 | XR_ITS ---
XR chest 2V DATE: 06/23/2020 11:17 INDICATION: Bronchitis. Heart failure. TECHNIQUE: 2 views COMPARISON: 03/11/2020 portable AP chest 11/19/2018 2 view chest FINDINGS: There is pectus excavatum. Cardiomegaly. Left-sided pacemaker device with leads overlying right atrium and right ventricle. Aortic calcification and mild unfolding. No pulmonary infiltrate or consolidation, pleural effusion or pulmonary vascular congestion or pneumo thorax is detected. Thoracic and lumbar scoliosis. IMPRESSION: Cardiomegaly Aortic atherosclerosis Left-sided dual-lead pacemaker Reviewed, dictated and finalized at location A. ICE RN
== END ==
PROVIDERS: Visit Provider Internal Medicine Pulmonary Disease
DX: I50.9 Heart failure, unspecified (principal); J98.09 Other diseases of bronchus, not elsewhere classified; I70.0 Atherosclerosis of aorta; Z95.0 Presence of cardiac pacemaker
CPT/HCPCS: 71046

== ENCOUNTER 2020-11-11 09:02 | Inpatient (IN) | payer MEDICARE, SELFPAY ==
[2020-11-11] VITALS (11 sets, daily range): BP systolic 117–153; BP diastolic 56–81; PULSE 80–106; RESP 16–20; TEMP 36.1–36.8; O2SAT 97–100; BMI 23.2
--- NOTE | ~2020-11-11 | XR_ITS ---
XR chest 1V portable DATE: 11/11/2020 10:07 INDICATION: Dyspnea. Weakness. Portable upright AP views TECHNIQUE: Portable AP chest on 11/11/2020 at 1002 hours COMPARISON: June 23, 2020 2 view chest FINDINGS: Left cardiac pacemaker with leads overlying right atrium and right ventricle. Cardiomegaly. Aortic calcification. No pulmonary infiltrate or consolidation, pleural effusion or pulmonary vascular congestion or pneumo thorax. IMPRESSION: Cardiomegaly and aortic atherosclerosis Dual-lead left-sided pacemaker device No active pulmonary disease Reviewed, dictated and finalized at location A.
--- NOTE | ~2020-11-11 | US_ITS ---
EXAMINATION: US renal BI DATE: 11/11/2020 16:49 INDICATION: Gas in the bladder. TECHNIQUE: Multiple ultrasound grayscale images of the kidneys were obtained. COMPARISON: CT dated 11/11/2020 FINDINGS: The right kidney measures 10.3 x 4.8 x 4.7 cm. The left kidney measures 10.0 x 4.0 x 5.0 cm. The kidn eys demonstrate normal echogenicity. There is no hydronephrosis in either kidney. No stones identifi ed. Marked enlargement of the prostate which impresses upon the base of the bladder. The visualized p ortion of the prostate projecting into the bladder measures at least 6.3 x 5.3 cm maximal transaxial dimensions. The bladder is otherwise unremarkable. IMPRESSION: 1. Normal kidneys and bladder. 2. Marked prostatomegaly. Reviewed, dictated and finalized at location A.
--- NOTE | ~2020-11-11 | CT_ITS ---
EXAMINATION: CT abdomen pelvis w con DATE: 11/11/2020 10:25 INDICATION: Abdominal pain. TECHNIQUE: Computed tomography (CT) of the abdomen and pelvis was performed with 100 cc Omnipaque 350 intravenous contrast. Automated exposure control and iterative reconstruction technique were employe d. Exam dose: 567.01 mGy-cm total exam DLP. COMPARISON: None. FINDINGS: There is mild infiltrate or atelectasis of the middle lobe and both lower lobes, most promi nent at the dependent right lower lobe. Cardiomegaly. No pericardial or pleural effusion. Right atrial and right ventricular pacemaker leads. There are numerous dependent gallstones. No gallbladder wall thickening or pericholecystic fluid or f at stranding is evident. No bile duct or pancreatic duct dilatation. No hepatic space-occupying mass lesion. Normal splenic size. Normal morphology of the adrenal glands. There is suggestion of occasional bilateral renal cysts, most of which are relatively small, the lar gest measuring up to approximately 9 mm, on the left. No urinary tract calculus or hydroureteronephrosis. There is atherosclerotic calcification of the abdominal aorta and branches but no aneurysm. No intrap eritoneal or retroperitoneal or pelvic mass lesion or adenopathy or ascites is evident. Normal appendix. There is a prominent amount of fecal material in the rectum and colon Diverticulosis of the sigmoid and descending colon; no CT evidence of diverticulitis. No bowel obstruction, bowel wall thickening, pneumatosis or intraperitoneal free air. Prominent prostatomegaly. There is a moderate amount of air in the bladder lumen. No bladder wall thickening or fat stranding a round the bladder is evident. If there has been recent instrumentation, this likely accounts for the urinary bladder. Otherwise consider bladder infection or fistula. There is extensive streak artifact through the pelvic area due to bilateral hip replacements. Multilevel degenerative disc disease of the lumbosacral spine with associated mild retrolisthesis at L3-4. Prominent degenerative change at the apophyseal joints of the lumbar spine. No suspicious osteolytic or osteoblastic lesions are noted. IMPRESSION: Cholelithiasis Bilateral subcentimeter renal cysts Normal appendix Diverticulosis of left colon; no CT evidence of diverticulitis Prominent prostatomegaly Air in the urinary bladder; this may be due to instrumentation; otherwise consider bladder infection or fistula Cardiomegaly Mild infiltrate or atelectasis in the lower lung zones Reviewed, dictated and finalized at Location [facility]. Reviewed, dictated and finalized at location A. IMPRESSION: Cholelithiasis Bilateral subcentimeter renal cysts Normal appendix Diverticulosis of left colon; no CT evidence of diverticulitis Prominent prostatomegaly Air in the urinary bladder; this may be due to instrumentation; otherwise consi ruben bladder infection or fistula Cardiomegaly Mild infiltrate or atelectasis in the lower lung zones
--- NOTE | 2020-11-11 09:11 | ECG_ITS ---
Measurements Intervals [place] Rate: 97 P: 74 WI: 233 QRS: -58 QRSD: 181 T: 98 QT: 372 QTc: 474 Interpretive Statements ATRIAL SENSE- ELECTRONIC VENTRICULAR PACEMAKER BASELINE ARTIFACT- II, III, AVR, AVL, AVF, V2-V6 NO FURTHER INTERPRETATION IS POSSIBLE ATYPICAL ECG Electronically Signed On 11-11-2020 12:03:21 CDT by Dennis Francisco D.O.
[2020-11-11 09:24] LABS: Basophils Percent Auto 0.3 % (0.2-1.2); Eosinophils Absolute Auto 0.7 K/mm3 (0-0.3); Eosinophils Percent Auto 6.2 % (0-4.4); Hematocrit 34.4 % (42.0-52.0); Hemoglobin 11.1 g/dL (14.0-18.0); Immature Granulocyte Absolute 0.11 K/mm3 (0.00-0.031); Immature Granulocyte Percent A 0.9 % (0-0.5); Lymphocytes Absolute Auto 0.79 K/mm3 (0.9-3.2); Lymphocytes Percent Auto 6.6 % (18.3-44.2); Mean Corpuscular HGB Conc 32.3 g/dl (32-36); Mean Corpuscular Hemoglobin 28.8 pg (26-34); Mean Corpuscular Volume 89.4 fl (80-100); Mean Platelet Volume 9.8 fl (7.4-10.4); Monocytes Absolute Auto 0.5 K/mm3 (0.1-0.6); Neutrophils Absolute Auto 9.8 K/mm3 (1.3-6.7); Platelet Count Result 257 k/mm3 (150-375); Red Blood Count 3.85 M/mm3 (4.6-6.20); Red Cell Distribution Width 14.5 % (11.5-14.5)
[2020-11-11 09:44] LABS: Alanine Aminotransferase 50 U/L (4-50); Albumin Level 4.4 g/dL (3.5-5.1); Alkaline Phosphatase 119 U/L (38-126); Anion Gap 11 mmol/L (8-16); Aspartate Amino Transferase 31 U/L (17-59); Bilirubin,Total 0.2 mg/dL (0.2-1.3); Blood Urea Nitrogen 65 mg/dL (9-20); Calcium 13.6 mg/dL (8.4-10.2); Carbon Dioxide 21 mmol/L (22-30); Chloride 98 mmol/L (98-107); Estimated CRCL calculation 34 ml/min; Estimated Glomerular Filt Rate 42; Glucose 176 mg/dL (75-110); Potassium 6.1 mmol/L (3.4-5.0); Sodium 130 mmol/L (137-145)
--- NOTE | 2020-11-11 09:48 | ED.GENADULT ---
HPI - General Adult General Chief complaint: Weakness Stated complaint: vomiting, weakness Time Seen by Provider: 11/11/20 09:46 Source: patient, family and RN notes reviewed Mode of arrival: EMS Limitations: no limitations History of Present Illness HPI narrative: 75 years old white male presented to the ED by ambulance from home complaining of vomiting started last night at least 7 times so far. Patient unable to keep anything down, last meal was yesterday noon. Patient denies having similar symptoms, fever, chills, diarrhea, constipation. Patient reports intermittent abdominal discomfort could be secondary to vomiting. Patient main complaint right now is dry mouth. Patient is fully vaccinated for COVID-19. History of CHF, hypertension, hyperlipidemia, obstructive sleep apnea, rheumatoid arthritis, diabetes No history of abdominal surgery. Related Data Home Medications Medication Instructions Recorded Confirmed aspirin 81 mg PO DAILY 03/11/20 03/11/20 fluticasone propionate 2 spray INTRANASAL DAILY 03/11/20 03/11/20 metformin 500 mg PO TID 03/11/20 03/11/20 tramadol 25 mg PO Q6H PRN 03/11/20 03/11/20 B12 11/11/20 amiodarone 200 mg PO DAILY 11/11/20 atorvastatin 40 mg PO HS 11/11/20 carvedilol 12.5 mg PO BID 11/11/20 diphenhydramine HCl [Benadryl] 25 mg PO HS PRN 11/11/20 docusate sodium [Colace] PO PRN 11/11/20 folic acid 1 mg PO DAILY 11/11/20 iron ps [id number] acid 1 cap PO DAILY PRN 11/11/20 [Poly-Iron 150 Forte] polyethylene glycol 3350 [Miralax] 17 g PO DAILY 11/11/20 potassium PO TID 11/11/20 tamsulosin 0.4 mg PO DAILY 11/11/20 Allergies Allergy/AdvReac Type Severity Reaction Status Date / Time ibuprofen Allergy Unknown Unknown Verified 11/11/20 09:13 morphine Allergy Unknown Seizure Verified 11/11/20 09:13 prochlorperazine Allergy Unknown Seizure Verified 11/11/20 09:13 Review of Systems Review of Systems: Narrative: CONSTITUTIONAL: Denies fever, chills, or sweats. EYES: Denies visual changes, redness, or discharge. ENT: Denies rhinorrhea, congestion, sore throat, or otalgia. CARDIOVASCULAR: Denies chest pain, palpitations, or edema. RESPIRATORY: Denies cough or dyspnea. GASTROINTESTINAL: Denies abdominal pain, nausea, vomiting, or diarrhea. GENITOURINARY: Denies dysuria or hematuria. SKIN: Denies rash or itching. Pale skin MUSCULOSKELETAL: Denies back pain, joint pain, or myalgia. NEUROLOGIC: Denies headache, numbness, or weakness. PSYCHIATRIC: Denies anxiety or depression. [facility] Past Medical History Medical History Benign essential tremor Congestive heart failure Echocardiogram in January 2014 was a very technically difficult study showing mild left ventricular enlargement, moderate anterior and septal hypokinesis with an overall ejection fraction estimated 45 to 50%, and mild mitral and tricuspid valve regurgitation. Essential hypertension Hyperlipidemia Obstructive sleep apnea on CPAP Osteoarthritis Rheumatoid arthritis Type 2 diabetes mellitus Surgical History Surgical History History of bilateral hip replacements History of cardiac catheterization (~2014) Performed at [facility] in [place]. Reportedly clean coronary arteries. History of left knee replacement History of orthopedic surgery Multiple orthopedic surgeries as a child due to defects, including bilateral feet and lower leg surgery and repair of pectus excavatum. History of thoracic surgery Multiple thoracic surgeries to repair pectus excavatum. History of tonsillectomy and adenoidectomy Family History Family History Mother Carcinoma of colon Sibling Cervical cancer Father Pulmonary embolism Social History Social History Social History: Surrogate decision maker: Abbey Gonzalez, sister.
[2020-11-11 09:49] LABS: Add Urine Microscopic? YES; Appearance Urine Clear (Clear); Bacteria Urine Trace /hpf; Bilirubin Urine Negative (Negative); Blood Urine Negative (Negative); Color Urine Yellow (Yellow); Glucose Urine UA Negative (Negative); Ketones Urine Negative (Negative); Leukocyte Esterase Ur 1+ LEU/UL (Negative); Mucus Urine Rare /lpf; Nitrate Urine Negative (Negative); Protein Urine Negative (Negative); RBC Urine 0-2 /hpf (0-2); Specific Grav Ur 1.014 (1.001-1.035); Urobilinogen Urine Negative mg/dL (<2.0)
--- NOTE | 2020-11-11 09:55 | PC.NURSE ---
lab called to add on d-dimer
[2020-11-11] MEDS: ONDANSETRON INJ 4 MG/2 ML VIAL IV PUSH ×2 (10:06→17:46)
[2020-11-11] MEDS: SODIUM CHLORIDE 0.9% IV 1,000 ML 999 ML IV CONT (10:06)
[2020-11-11] MEDS: SODIUM BICARBONATE 8.4% 50 MEQ/50 ML SYRINGE IV PUSH (10:42)
[2020-11-11] MEDS: CALCIUM GLUCONATE 1,000 MG/10 ML VIAL 1000 MG IV PUSH (10:42)
[2020-11-11] MEDS: DEXTROSE 50% 25 GM/50 ML SYRINGE IV PUSH (10:42)
[2020-11-11] MEDS: INSULIN HUMAN REGULAR (*BKC) 100 UNITS/ML 10 UNITS IV PUSH (10:43)
--- NOTE | 2020-11-11 11:51 | ECG_ITS ---
Measurements Intervals [place] Rate: 87 P: 58 HI: 249 QRS: -55 QRSD: 182 T: 120 QT: 407 QTc: 491 Interpretive Statements ATRIAL SENSE- ELECTRONIC VENTRICULAR PACEMAKER NO FURTHER INTERPRETATION IS POSSIBLE ATYPICAL ECG Electronically Signed On 11-11-2020 13:01:03 CDT by Dennis Francisco D.O.
--- NOTE | 2020-11-11 14:25 | ADMGEN ---
This patient, Ben Gonzalez, was admitted to [facility] Surg Room 320-01. Patient/family oriented to hospital policies and general routines including ID bracelet, bed and alarms, visiting hours, pain management, procedures, bathroom and other care routines, personal items, smoking policy, room service/diet, and visiting hours. Information on how to activate the Rapid Response Team has been discussed. Patient/Family are encouraged to report perceived risks to care and to ask questions if they do not understand what they are told or what they should do.
[2020-11-11] MEDS: SODIUM CHLORIDE 0.9% IV 1,000 ML 125 ML IV CONT (15:41)
--- NOTE | 2020-11-11 15:50 | PM.IMHP ---
H&P: HPI History of Present Illness Date/Time: 11/11/20 15:50Thigautam is a 75-year-old male patient who resides with his sister. The patient stated that he vomited several times during the night. He stated he had a couple loose stools but not really diarrhea. He stated that he has not been around any other sick contacts and he is fully vaccinated for COVID-19. His white count was noted to be 12. His H&H 11.1 and 34.4. Sodium is 130. Potassium 6.1. Creatinine 1.6 the BUN of 65. The patient was started on IV fluids. Given IV Zofran, calcium gluconate, D50, sodium bicarb, regular insulin, and started on Zosyn for urinary tract infection. CT of the abdomen and pelvis shows moderate amount of air in the bladder lumen. Cholelithiasis bilateral subcentimeter renal cyst. Normal appendix. Diverticulosis of the left colon no evidence of diverticulitis. Prominent prostatomegaly. Air and urinary bladder which could be due to instrumentation otherwise consider bladder infection or fistula. Cardiomegaly. The patient is being admitted to observation status on the date of service of 11/11/2020. Chief Complaint: Nausea and vomiting Review of Systems Review of Systems: All systems reviewed & are unremarkable except as noted in HPI and below Constitutional: Constitutional: Reports as per HPI and Reports no additional constitutional complaints Eyes: Eyes: Reports as per HPI and Reports no additional eye complaints ENT: Reports system reviewed and no additional complaints, except as documented and Reports Normal hearing present Cardiovascular: Cardiovascular: Reports no additional cardiovascular complaints Respiratory: Respiratory: Reports no additional respiratory complaints and Reports no additional respiratory complaints Gastrointestinal: Gastrointestinal: Reports as per HPI and Reports no additional gastrointestinal complaints Musculoskeletal: Musculoskeletal: Reports no additional musculoskeletal complaints Integumentary/Breasts: Skin/Breast: Reports system reviewed and no additional complaints, except as docu and Reports as per HPI Neurologic: Reports system reviewed and no additional complaints, except as documented, Reports as per HPI and Reports Normal hearing present Psychiatric: Psychiatric: Reports no additional psychiatric complaints and Reports as per HPI Endocrine: Endocrine: Reports no additional endocrine complaints Hematologic/Lymphatic: Hematologic/Lymphatic: Reports no additional hematologic/lymphatic complaints Allergic/Immunologic: Allergic/Immunologic: Reports no additional allergic/immunologic complaints COUNTS INCLUDE 234 BEDS AT THE [facility] Past Medical History Medical History (Updated 11/11/20 @ 16:13 by Meera Penny NP) Benign essential tremor BPH (benign prostatic hyperplasia) Congestive heart failure Echocardiogram in January 2014 was a very technically difficult study showing mild left ventricular enlargement, moderate anterior and septal hypokinesis with an overall ejection fraction estimated 45 to 50%, and mild mitral and tricuspid valve regurgitation. Essential hypertension Hyperlipidemia Obstructive sleep apnea on CPAP The patient no longer uses a CPAP machine since he has lost weight. Osteoarthritis Rheumatoid arthritis Type 2 diabetes mellitus Surgical History Surgical History (Updated 11/11/20 @ 16:09 by Meera Penny NP) History of bilateral hip replacements History of cardiac catheterization (~2014) Performed at [facility] in [place]. Reportedly clean coronary arteries. History of left knee replacement History of orthopedic surgery Multiple orthopedic surgeries as a child due to defects, including bilateral feet and lower leg surgery and repair of pectus excavatum. History of thoracic surgery Multiple thoracic surgeries to repair pectus excavatum. History of tonsillectomy and adenoidectomy Presence of biventricular AICD Family History Family History (Reviewed 11/11/20 @ 16:09 by Meera Penny
[2020-11-11 16:59] LABS: Creatinine Urine 28.9 mg/dL
[2020-11-11 17:09] LABS: Glucose Point of Care 155 mg/dl (65-105)
[2020-11-11] MEDS: carvediloL 12.5 MG TABLET PO (17:41)
[2020-11-11 18:35] LABS: Magnesium 2.3 mg/dL (1.6-2.3); Phosphorus 4.9 mg/dL (2.5-4.5)
[2020-11-11 18:47] LABS: Parathyroid Intact 9.7 pg/mL (7.5-53.5)
[2020-11-11] MEDS: ATORVASTATIN 40 MG TABLET PO (20:28)
[2020-11-11 21:04] LABS: Anion Gap 7 mmol/L (8-16); Blood Urea Nitrogen 63 mg/dL (9-20); Calcium 12.4 mg/dL (8.4-10.2); Carbon Dioxide 24 mmol/L (22-30); Chloride 99 mmol/L (98-107); Estimated CRCL calculation 34 ml/min; Estimated Glomerular Filt Rate 42; Glucose 118 mg/dL (75-110); Potassium 5.4 mmol/L (3.4-5.0); Sodium 130 mmol/L (137-145)
[2020-11-11] MEDS: traMADol HCL (*CRX) 25 MG TABLET PO (21:49)
[2020-11-11 22:07] LABS: Glucose Point of Care 122 mg/dl (65-105)
[2020-11-12] VITALS (12 sets, daily range): BP systolic 112–127; BP diastolic 48–58; PULSE 69–118; RESP 12–20; TEMP 36.6; O2SAT 96–100; BMI 23.2
[2020-11-12] MEDS: SODIUM CHLORIDE 0.9% IV 1,000 ML 75 ML IV CONT ×2 (00:42→18:15)
[2020-11-12 03:28] LABS: Vitamin D 25 Hydroxy 60.8 ng/mL
[2020-11-12 06:47] LABS: Basophils Percent Auto 0.4 % (0.2-1.2); Eosinophils Absolute Auto 2.1 K/mm3 (0-0.3); Eosinophils Percent Auto 21.5 % (0-4.4); Hematocrit 29.9 % (42.0-52.0); Hemoglobin 9.3 g/dL (14.0-18.0); Immature Granulocyte Absolute 0.07 K/mm3 (0.00-0.031); Immature Granulocyte Percent A 0.7 % (0-0.5); Lymphocytes Absolute Auto 1.04 K/mm3 (0.9-3.2); Lymphocytes Percent Auto 10.5 % (18.3-44.2); Mean Corpuscular HGB Conc 31.1 g/dl (32-36); Mean Corpuscular Hemoglobin 28.5 pg (26-34); Mean Corpuscular Volume 91.7 fl (80-100); Monocytes Absolute Auto 0.7 K/mm3 (0.1-0.6); Monocytes Percent Auto 7.3 % (2.6-8.5); Neutrophils Absolute Auto 5.9 K/mm3 (1.3-6.7); Neutrophils Percent Auto 59.6 % (45.5-73.1); Platelet Count Result 190 k/mm3 (150-375); Red Blood Count 3.26 M/mm3 (4.6-6.20); Red Cell Distribution Width 14.6 % (11.5-14.5); White Blood Count 9.9 K/mm3 (4.5-10.0)
[2020-11-12 07:00] LABS: Anion Gap 9 mmol/L (8-16); Blood Urea Nitrogen 56 mg/dL (9-20); Calcium 12.4 mg/dL (8.4-10.2); Carbon Dioxide 23 mmol/L (22-30); Chloride 100 mmol/L (98-107); Estimated CRCL calculation 32 ml/min; Estimated Glomerular Filt Rate 39; Glucose 108 mg/dL (75-110); Magnesium 2.3 mg/dL (1.6-2.3); Potassium 5.3 mmol/L (3.4-5.0); Sodium 132 mmol/L (137-145)
[2020-11-12 07:27] LABS: Hemoglobin A1C 5.8 % (<5.7)
[2020-11-12] MEDS: AMIODARONE HCL 200 MG TABLET PO (08:50)
[2020-11-12] MEDS: CYANOCOBALAMIN 1,000 MCG TABLET 1000 MCG PO (08:51)
[2020-11-12] MEDS: ASPIRIN 81 MG CHEWABLE TABLET PO (08:51)
[2020-11-12] MEDS: TAMSULOSIN HCL 0.4 MG CAPSULE PO (08:51)
[2020-11-12] MEDS: carvediloL 12.5 MG TABLET PO ×2 (08:52→18:15)
[2020-11-12] MEDS: FLUTICASONE PROPIONATE 0.05% NA SPR 16 GM BTL (*BKC) 2 SPRAY NASAL (08:52)
[2020-11-12] MEDS: FOLIC ACID 1 MG TABLET PO (08:52)
[2020-11-12 09:00] LABS: Glucose Point of Care 123 mg/dl (65-105)
[2020-11-12 12:25] LABS: Glucose Point of Care 109 mg/dl (65-105)
--- NOTE | 2020-11-12 12:46 | PCNSR ---
On 11/12/20, the student,Joanie Lam, provided care and completed [facility] documentation on this patient. I have reviewed the student's documentation and agree with the findings.
--- NOTE | 2020-11-12 12:48 | PM.IMPN ---
Progress Note: A&P Assessment and Plan (1) GLORIA (acute kidney injury): Code(s): N17.9 - Acute kidney failure, unspecified Status: Acute Assessment and Plan: Likely 2/2 dehydration Continue IVF Avoid nephrotoxins Monitor Cr 1.6-->1.7 today. (2) Urinary tract infection: Qualifiers: Hematuria presence: without hematuria Urinary tract infection type: site unspecified Qualified Code(s): N39.0 - Urinary tract infection, site not specified Code(s): N39.0 - Urinary tract infection, site not specified Status: Acute Assessment and Plan: CT of A/P showed air in the bladder which could represent an infection or possible fistula US of pelvis--> Normal kidneys and bladder; marked prostatomegaly PCP ordered a PET scan scheduled for today, will need to reschedule Follow [facility] Continue with Zoysn (3) Acute hyperkalemia: Code(s): E87.5 - Hyperkalemia Status: Acute Assessment and Plan: Improving Hold supplement Continue with IVF Will give kayexalate Monitor (4) Hyperlipidemia: Qualifiers: Hyperlipidemia type: mixed hyperlipidemia Qualified Code(s): E78.2 - Mixed hyperlipidemia Code(s): E78.5 - Hyperlipidemia, unspecified Status: Chronic Assessment and Plan: Continue with atorvastatin (5) Hypercalcemia: Code(s): E83.52 - Hypercalcemia Status: Acute Assessment and Plan: Thyroid level wnl (6) BPH (benign prostatic hyperplasia): Code(s): N40.0 - Benign prostatic hyperplasia without lower urinary tract symptoms Status: Chronic Assessment and Plan: continue with Flomax (7) Acute hyponatremia: Code(s): E87.1 - Hypo-osmolality and hyponatremia Status: Acute Assessment and Plan: continue to gentle IVF Monitor closely with hydration as the patient has a history of congestive heart failure Na+ 130-->132 today Follow urine studies Monitor (8) Type 2 diabetes mellitus: Qualifiers: Diabetes mellitus complication status: without complication Diabetes mellitus senior living insulin use: without termination clerk use Qualified Code(s): E11.9 - Type 2 diabetes mellitus without complications Code(s): E11.9 - Type 2 diabetes mellitus without complications Status: Acute Assessment and Plan: Accu-Cheks AC and HS. A1c 5.8 Holding metformin (9) Essential hypertension: Code(s): I10 - Essential (primary) hypertension Status: Chronic Assessment and Plan: Stable Continue with Coreg Monitor (10) Ventricular tachycardia: Code(s): I47.2 - Ventricular tachycardia Status: Acute Assessment and Plan: AICD Followed by cardiology in [place] continue amiodarone and Coreg Monitor (11) Obstructive sleep apnea on CPAP: Code(s): G47.33 - Obstructive sleep apnea (adult) (pediatric); Z99.89 - Dependence on other enabling machines and devices Status: Acute Assessment and Plan: Patient no longer uses a CPAP machine since weight loss Subjective Date/time seen: 11/12/20 12:48 Pt up to chair this a.m.; complains of some dizziness when getting up this a.m.; no acute events overnight; denies any N/V Review of Systems Review of Systems: All systems reviewed & are unremarkable except as noted in HPI and below Exam Const: General: no acute distress, alert and awake Orientation/consciousness: patient oriented x3 HENMT: Head: normocephalic and atraumatic Ears: hearing grossly normal bilaterally and external ears normal Face and sinus: face symmetric Mouth: Yes Normal oral and palatal mucosa present Eyes: Pupils: Equal, round and reactive pupils present EOM: EOMs intact bilaterally Neck: Neck: full ROM, trachea midline and no JVD Thyroid: thyroid normal Chest: Chest palpation & inspection: normal inspection of the chest Resp: Effort & Inspection: normal respiratory effort Auscultation: clear to auscul
[2020-11-12] MEDS: SODIUM POLYSTYRENE SULFONONATE 15 GM/60 ML BTL PO (15:34)
[2020-11-12] MEDS: traMADol HCL (*CRX) 25 MG TABLET PO (15:34)
[2020-11-12 18:48] LABS: Glucose Point of Care 99 mg/dl (65-105)
[2020-11-12] MEDS: ACETAMINOPHEN 325 MG TABLET 650 MG PO (20:14)
[2020-11-12] MEDS: ATORVASTATIN 40 MG TABLET PO (20:14)
[2020-11-12 21:28] LABS: Glucose Point of Care 96 mg/dl (65-105)
[2020-11-13] VITALS (10 sets, daily range): BP systolic 110–141; BP diastolic 55–62; PULSE 66–78; RESP 18–20; TEMP 36.2–36.5; O2SAT 98–100
[2020-11-13] MEDS: traMADol HCL (*CRX) 25 MG TABLET PO (02:45)
[2020-11-13] MEDS: SODIUM CHLORIDE 0.9% IV 1,000 ML 75 ML IV CONT ×2 (06:02→18:06)
[2020-11-13 08:15] LABS: Glucose Point of Care 86 mg/dl (65-105)
[2020-11-13] MEDS: ASPIRIN 81 MG CHEWABLE TABLET PO (08:15)
[2020-11-13] MEDS: carvediloL 12.5 MG TABLET PO ×2 (08:15→18:06)
[2020-11-13] MEDS: CYANOCOBALAMIN 1,000 MCG TABLET 1000 MCG PO (08:15)
[2020-11-13] MEDS: AMIODARONE HCL 200 MG TABLET PO (08:15)
[2020-11-13] MEDS: FOLIC ACID 1 MG TABLET PO (08:15)
[2020-11-13] MEDS: TAMSULOSIN HCL 0.4 MG CAPSULE PO (08:15)
[2020-11-13] MEDS: FLUTICASONE PROPIONATE 0.05% NA SPR 16 GM BTL (*BKC) 2 SPRAY NASAL (08:16)
[2020-11-13] MEDS: ACETAMINOPHEN 325 MG TABLET 650 MG PO ×2 (10:54→20:41)
[2020-11-13 11:53] LABS: Glucose Point of Care 106 mg/dl (65-105)
--- NOTE | 2020-11-13 13:39 | PM.IMPN ---
Progress Note: A&P Assessment and Plan (1) GLORIA (acute kidney injury): Code(s): N17.9 - Acute kidney failure, unspecified Status: Acute Assessment and Plan: Likely 2/2 dehydration Continue IVF. Labs were not repeated today. Avoid nephrotoxins Monitor renal parameters and electrolytes. Continue to monitor intake output record. Serum creatinine trended down yesterday. Ultrasound showed normal kidneys with no evidence of obstructive uropathy. It did show enlarged prostate. (2) Urinary tract infection: Qualifiers: Hematuria presence: without hematuria Urinary tract infection type: site unspecified Qualified Code(s): N39.0 - Urinary tract infection, site not specified Code(s): N39.0 - Urinary tract infection, site not specified Status: Acute Assessment and Plan: CT of A/P showed air in the bladder which could represent an infection or possible fistula US of pelvis--> Normal kidneys and bladder; marked prostatomegaly PCP ordered a PET scan scheduled for today, will need to reschedule Urine culture grew E coli which is pansensitive. Will stop Zosyn and start him on ceftriaxone. He will be discharged home on p.o. antibiotic for total duration of 5 days. (3) Acute hyperkalemia: Code(s): E87.5 - Hyperkalemia Status: Acute Assessment and Plan: Improving Hold supplement Continue with IVF Received Kayexalate At the time of presentation. Potassium was 5.3 yesterday. Labs were not repeated today. (4) Hyperlipidemia: Qualifiers: Hyperlipidemia type: mixed hyperlipidemia Qualified Code(s): E78.2 - Mixed hyperlipidemia Code(s): E78.5 - Hyperlipidemia, unspecified Status: Chronic Assessment and Plan: Continue with atorvastatin (5) Hypercalcemia: Code(s): E83.52 - Hypercalcemia Status: Acute Assessment and Plan: Thyroid level wnl Continue to monitor. Continue IV fluids today. vitamin-D level, PTH, protein electrophoresis and GEORGE level have been sent with the results pending. (6) BPH (benign prostatic hyperplasia): Code(s): N40.0 - Benign prostatic hyperplasia without lower urinary tract symptoms Status: Chronic Assessment and Plan: continue with Flomax Ultrasound did show enlarged prostate. (7) Acute hyponatremia: Code(s): E87.1 - Hypo-osmolality and hyponatremia Status: Acute Assessment and Plan: continue to gentle IVF Monitor closely with hydration as the patient has a history of congestive heart failure. no signs of fluid overload today. Na+ 130-->132 Yesterday (8) Type 2 diabetes mellitus: Qualifiers: Diabetes mellitus [facility] insulin use: without supervisor intermediates use Diabetes mellitus complication status: without complication Qualified Code(s): E11.9 - Type 2 diabetes mellitus without complications Code(s): E11.9 - Type 2 diabetes mellitus without complications Status: Acute Assessment and Plan: Accu-Cheks AC and HS. A1c 5.8 Holding metformin (9) Essential hypertension: Code(s): I10 - Essential (primary) hypertension Status: Chronic Assessment and Plan: Stable Continue with Coreg Monitor Hemodynamics (10) Ventricular tachycardia: Code(s): I47.2 - Ventricular tachycardia Status: Acute Assessment and Plan: status post AICDAICD Followed by cardiology in [place] continue amiodarone and Coreg Monitor (11) Obstructive sleep apnea on CPAP: Code(s): G47.33 - Obstructive sleep apnea (adult) (pediatric); Z99.89 - Dependence on other enabling machines and devices Status: Acute Assessment and Plan: Patient no longer uses a CPAP machine since weight loss Subjective Date/time seen: 11/13/20 13:39 He is feeling better. Denied to have any significant symptoms. He was ambulated by PT today and did mention to have some dizziness. He denied hav
[2020-11-13 16:22] LABS: Glucose Point of Care 103 mg/dl (65-105)
--- NOTE | 2020-11-13 16:49 | PCPTNOTE ---
The patient treatment was not able to be completed on 11-13-2020 due to Bed rest orders active at 15:25. R.N stated ENAMEL DIPPER could see patient. ENAMEL DIPPER informed R.N of orders. Checked orders at 16:30 Bed rest still active. Will plan to continue treatment per plan of care.
[2020-11-13] MEDS: HEPARIN SODIUM 5,000 UNITS/ML VIAL 5000 UNITS SUB-Q (20:41)
[2020-11-13] MEDS: ATORVASTATIN 40 MG TABLET PO (20:42)
[2020-11-13 21:41] LABS: Glucose Point of Care 95 mg/dl (65-105)
[2020-11-14] VITALS (10 sets, daily range): BP systolic 128–138; BP diastolic 51–56; PULSE 66–73; RESP 14–20; TEMP 36.4–36.6; O2SAT 98–100
[2020-11-14] MEDS: ACETAMINOPHEN 325 MG TABLET 650 MG PO ×2 (03:22→20:48)
[2020-11-14] MEDS: SODIUM CHLORIDE 0.9% IV 1,000 ML 75 ML IV CONT ×2 (06:22→17:24)
[2020-11-14 08:09] LABS: Basophils Percent Auto 0.2 % (0.2-1.2); Eosinophils Percent Auto 30.9 % (0-4.4); Hematocrit 27.6 % (42.0-52.0); Hemoglobin 8.7 g/dL (14.0-18.0); Immature Granulocyte Absolute 0.05 K/mm3 (0.00-0.031); Immature Granulocyte Percent A 0.8 % (0-0.5); Lymphocytes Absolute Auto 1.11 K/mm3 (0.9-3.2); Lymphocytes Percent Auto 17.2 % (18.3-44.2); Mean Corpuscular HGB Conc 31.5 g/dl (32-36); Mean Corpuscular Hemoglobin 28.7 pg (26-34); Mean Corpuscular Volume 91.1 fl (80-100); Mean Platelet Volume 10.2 fl (7.4-10.4); Monocytes Absolute Auto 0.5 K/mm3 (0.1-0.6); Monocytes Percent Auto 7.4 % (2.6-8.5); Neutrophils Absolute Auto 2.8 K/mm3 (1.3-6.7); Neutrophils Percent Auto 43.5 % (45.5-73.1); Platelet Count Result 148 k/mm3 (150-375); Red Blood Count 3.03 M/mm3 (4.6-6.20); Red Cell Distribution Width 14.6 % (11.5-14.5); White Blood Count 6.5 K/mm3 (4.5-10.0)
[2020-11-14] MEDS: carvediloL 12.5 MG TABLET PO ×2 (08:09→17:22)
[2020-11-14] MEDS: ASPIRIN 81 MG CHEWABLE TABLET PO (08:09)
[2020-11-14] MEDS: FLUTICASONE PROPIONATE 0.05% NA SPR 16 GM BTL (*BKC) 2 SPRAY NASAL (08:09)
[2020-11-14] MEDS: FOLIC ACID 1 MG TABLET PO (08:10)
[2020-11-14] MEDS: TAMSULOSIN HCL 0.4 MG CAPSULE PO (08:10)
[2020-11-14] MEDS: HEPARIN SODIUM 5,000 UNITS/ML VIAL 5000 UNITS SUB-Q ×2 (08:10→20:20)
[2020-11-14] MEDS: AMIODARONE HCL 200 MG TABLET PO (08:10)
[2020-11-14 08:34] LABS: Anion Gap 7 mmol/L (8-16); Blood Urea Nitrogen 32 mg/dL (9-20); Calcium 9.9 mg/dL (8.4-10.2); Carbon Dioxide 20 mmol/L (22-30); Chloride 107 mmol/L (98-107); Estimated CRCL calculation 36 ml/min; Estimated Glomerular Filt Rate 45; Glucose 74 mg/dL (65-110); Potassium 3.8 mmol/L (3.4-5.0); Sodium 134 mmol/L (137-145)
[2020-11-14 11:47] LABS: Glucose Point of Care 129 mg/dl (65-105)
[2020-11-14] MEDS: CYANOCOBALAMIN 1,000 MCG TABLET 1000 MCG PO (12:06)
--- NOTE | 2020-11-14 12:46 | PM.IMPN ---
Progress Note: A&P Assessment and Plan (1) GLORIA (acute kidney injury): Code(s): N17.9 - Acute kidney failure, unspecified Status: Acute Assessment and Plan: Likely 2/2 dehydration Labs reviewed today. Renal parameters improving with creatinine of 1.5 today. Continue IV fluids. He was encouraged to take adequate p.o. intake. Avoid nephrotoxins Monitor renal parameters and electrolytes. Continue to monitor intake output record. Ultrasound showed normal kidneys with no evidence of obstructive uropathy. It did show enlarged prostate. (2) Urinary tract infection: Qualifiers: Hematuria presence: without hematuria Urinary tract infection type: site unspecified Qualified Code(s): N39.0 - Urinary tract infection, site not specified Code(s): N39.0 - Urinary tract infection, site not specified Status: Acute Assessment and Plan: CT of A/P showed air in the bladder which could represent an infection or possible fistula US of pelvis--> Normal kidneys and bladder; marked prostatomegaly PCP ordered a PET scan scheduled for today, will need to reschedule Urine culture grew E coli which is pansensitive. He was initially on Zosyn but that has been switched to ceftriaxone yesterday after urine culture showed E coli which is sensitive to ceftriaxone. He will be discharged home on p.o. antibiotic with ciprofloxacin/Vantin for total duration of 5 days. (3) Acute hyperkalemia: Code(s): E87.5 - Hyperkalemia Status: Acute Assessment and Plan: resolved Hold supplement Continue with IVF Received Kayexalate At the time of presentation. potassium is within acceptable range today. (4) Hyperlipidemia: Qualifiers: Hyperlipidemia type: mixed hyperlipidemia Qualified Code(s): E78.2 - Mixed hyperlipidemia Code(s): E78.5 - Hyperlipidemia, unspecified Status: Chronic Assessment and Plan: Continue with atorvastatin (5) Hypercalcemia: Code(s): E83.52 - Hypercalcemia Status: Acute Assessment and Plan: Thyroid level wnl Continue to monitor. Continue IV fluids today. vitamin-D level, PTH, protein electrophoresis and GEORGE level have been sent with the results pending. He was recently admitted to [facility] with hypercalcemia as well. (6) BPH (benign prostatic hyperplasia): Code(s): N40.0 - Benign prostatic hyperplasia without lower urinary tract symptoms Status: Chronic Assessment and Plan: continue with Flomax Ultrasound did show enlarged prostate. (7) Acute hyponatremia: Code(s): E87.1 - Hypo-osmolality and hyponatremia Status: Acute Assessment and Plan: continue to gentle IVF Monitor closely with hydration as the patient has a history of congestive heart failure. no signs of fluid overload today. Serum sodium improved to 134 today. (8) Type 2 diabetes mellitus: Qualifiers: Diabetes mellitus law librarian insulin use: without detention use Diabetes mellitus complication status: without complication Qualified Code(s): E11.9 - Type 2 diabetes mellitus without complications Code(s): E11.9 - Type 2 diabetes mellitus without complications Status: Acute Assessment and Plan: Accu-Cheks AC and HS. A1c 5.8 Holding metformin (9) Essential hypertension: Code(s): I10 - Essential (primary) hypertension Status: Chronic Assessment and Plan: Stable Continue with Coreg Monitor Hemodynamics (10) Ventricular tachycardia: Code(s): I47.2 - Ventricular tachycardia Status: Acute Assessment and Plan: status post AICDAICD Followed by cardiology in [place] continue amiodarone and Coreg Monitor (11) Obstructive sleep apnea on CPAP: Code(s): G47.33 - Obstructive sleep apnea (adult) (pediatric); Z99.89 - Dependence on other enabling machines and devices Status: Acute Ass
[2020-11-14 17:10] LABS: Glucose Point of Care 135 mg/dl (65-105)
[2020-11-14] MEDS: ATORVASTATIN 40 MG TABLET PO (20:20)
[2020-11-14] MEDS: diphenhydrAMINE HCl CAP 25 MG CAPSULE PO (20:48)
[2020-11-15] VITALS (8 sets, daily range): BP systolic 114–145; BP diastolic 59–61; PULSE 60–80; RESP 16–20; TEMP 36.2–36.9; O2SAT 95–100
[2020-11-15 04:25] LABS: Ionized Calcium 6.9 mg/dL (4.8-5.6)
[2020-11-15 06:57] LABS: Basophils Percent Auto 0.4 % (0.2-1.2); Eosinophils Percent Auto 36.2 % (0-4.4); Hematocrit 26.5 % (42.0-52.0); Hemoglobin 8.4 g/dL (14.0-18.0); Immature Granulocyte Absolute 0.06 K/mm3 (0.00-0.031); Immature Granulocyte Percent A 1.1 % (0-0.5); Lymphocytes Absolute Auto 0.95 K/mm3 (0.9-3.2); Lymphocytes Percent Auto 16.8 % (18.3-44.2); Mean Corpuscular HGB Conc 31.7 g/dl (32-36); Mean Corpuscular Hemoglobin 28.6 pg (26-34); Mean Corpuscular Volume 90.1 fl (80-100); Mean Platelet Volume 9.8 fl (7.4-10.4); Monocytes Absolute Auto 0.4 K/mm3 (0.1-0.6); Monocytes Percent Auto 6.6 % (2.6-8.5); Neutrophils Absolute Auto 2.2 K/mm3 (1.3-6.7); Neutrophils Percent Auto 38.9 % (45.5-73.1); Platelet Count Result 147 k/mm3 (150-375); Red Blood Count 2.94 M/mm3 (4.6-6.20); Red Cell Distribution Width 14.2 % (11.5-14.5); White Blood Count 5.6 K/mm3 (4.5-10.0)
[2020-11-15 07:30] LABS: Anion Gap 4 mmol/L (8-16); Blood Urea Nitrogen 21 mg/dL (9-20); Calcium 9.4 mg/dL (8.4-10.2); Carbon Dioxide 22 mmol/L (22-30); Chloride 109 mmol/L (98-107); Estimated CRCL calculation 38 ml/min; Estimated Glomerular Filt Rate 49; Glucose 89 mg/dL (65-110); Potassium 3.4 mmol/L (3.4-5.0); Sodium 135 mmol/L (137-145)
[2020-11-15 08:03] LABS: Glucose Point of Care 104 mg/dl (65-105)
[2020-11-15] MEDS: CYANOCOBALAMIN 1,000 MCG TABLET 1000 MCG PO (10:05)
[2020-11-15] MEDS: ASPIRIN 81 MG CHEWABLE TABLET PO (10:05)
[2020-11-15] MEDS: FLUTICASONE PROPIONATE 0.05% NA SPR 16 GM BTL (*BKC) 2 SPRAY NASAL (10:05)
[2020-11-15] MEDS: FOLIC ACID 1 MG TABLET PO (10:05)
[2020-11-15] MEDS: TAMSULOSIN HCL 0.4 MG CAPSULE PO (10:05)
[2020-11-15] MEDS: carvediloL 12.5 MG TABLET PO ×2 (10:05→16:49)
[2020-11-15] MEDS: AMIODARONE HCL 200 MG TABLET PO (10:05)
[2020-11-15] MEDS: HEPARIN SODIUM 5,000 UNITS/ML VIAL 5000 UNITS SUB-Q ×2 (10:05→20:49)
--- NOTE | 2020-11-15 11:08 | PCNFU ---
Nutrition Follow-Up Complete: Inadequate oral intake related to poor appetite and vomiting as evidenced by patient's statement and an intake of 10% of meals. Goal: Have patient meet estimated nutritional needs. Patient is progressing towards goal. We will continue current goal. Pt current nutrition is DBCC: Soft/bite sized, Level 6 Last recorded weight is 69.3 kg no new weight to report. Bowel Motility:+BM reported 11/15 Labs Reviewed:Na 135, GFR 49,BUN 21, Cr 1.4 Meds Noted:Lipitor, Folic Acid, Pacerone,Coreg, Vit B-12 Additional Notes: Patient seen today for nutrition follow up. Diet orders: soft/bite sized, Level 6/DBCC. Patient eating has improved 75-100% of meals. Diet supplements have been ordered for Glucerna shakes BID providing an additional 220 kcals and 10 gms protein. Agree with diet orders. Will follow up in 5 days.
[2020-11-15 11:28] LABS: Glucose Point of Care 118 mg/dl (65-105)
--- NOTE | 2020-11-15 16:35 | PM.IMPN ---
Progress Note: A&P Assessment and Plan (1) GLORIA (acute kidney injury): Code(s): N17.9 - Acute kidney failure, unspecified Status: Acute Assessment and Plan: Improving Likely 2/2 dehydration Cr 1.4 today Avoid nephrtoxins Continue with IVF Renal US-->normal kidneys with no evidence of obstructive uropathy. It did show enlarged prostate Monitor (2) Urinary tract infection: Qualifiers: Hematuria presence: without hematuria Urinary tract infection type: site unspecified Qualified Code(s): N39.0 - Urinary tract infection, site not specified Code(s): N39.0 - Urinary tract infection, site not specified Status: Acute Assessment and Plan: CT of A/P showed air in the bladder which could represent an infection or possible fistula US of pelvis--> Normal kidneys and bladder; marked prostatomegaly PCP ordered a PET scan scheduled for today, will need to reschedule UC +E coli which is pansensitive S/p Zosyn Continue with ceftriaxone He will be discharged home on p.o. antibiotic with ciprofloxacin/Vantin for total duration of 5 days (3) Acute hyperkalemia: Code(s): E87.5 - Hyperkalemia Status: Acute Assessment and Plan: resolved Hold supplement Continue with IVF S/p Kayexalate Monitor (4) Hyperlipidemia: Qualifiers: Hyperlipidemia type: mixed hyperlipidemia Qualified Code(s): E78.2 - Mixed hyperlipidemia Code(s): E78.5 - Hyperlipidemia, unspecified Status: Chronic Assessment and Plan: Continue with atorvastatin (5) Hypercalcemia: Code(s): E83.52 - Hypercalcemia Status: Acute Assessment and Plan: Thyroid level wnl Continue to monitor Continue IV fluids today. vitamin-D level PTH wnl protein electrophoresis pending GEORGE pending He was recently admitted to [facility] with hypercalcemia as well. (6) BPH (benign prostatic hyperplasia): Code(s): N40.0 - Benign prostatic hyperplasia without lower urinary tract symptoms Status: Chronic Assessment and Plan: continue with Flomax Ultrasound did show enlarged prostate. (7) Acute hyponatremia: Code(s): E87.1 - Hypo-osmolality and hyponatremia Status: Acute Assessment and Plan: continue to gentle IVF Monitor closely with hydration as the patient has a history of congestive heart failure. no signs of fluid overload today. Serum sodium improved to 134 today. 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 A1c 5.8 Holding metformin Monitor (9) Essential hypertension: Code(s): I10 - Essential (primary) hypertension Status: Chronic Assessment and Plan: Stable Continue with Coreg Monitor Hemodynamics (10) Ventricular tachycardia: Code(s): I47.2 - Ventricular tachycardia Status: Acute Assessment and Plan: status post AICD Followed by cardiology in [place] continue amiodarone and Coreg Monitor (11) Obstructive sleep apnea on CPAP: Code(s): G47.33 - Obstructive sleep apnea (adult) (pediatric); Z99.89 - Dependence on other enabling machines and devices Status: Acute Assessment and Plan: Patient no longer uses a CPAP machine since weight loss PT/OT Patient seemed to be very deconditioned. He was able to transfer out of bed to chair today with the help of PT. he has not ambulated yet. disposition: pending renal function d/c tomorrow Subjective Date/time seen: 11/15/20 16:35 pt seen and evaluated; overall he is improving; he does complains of 3 episodes of diarrhea Review of Systems
[2020-11-15 16:44] LABS: Glucose Point of Care 93 mg/dl (65-105)
[2020-11-15] MEDS: ACETAMINOPHEN 325 MG TABLET 650 MG PO (20:47)
[2020-11-15] MEDS: diphenhydrAMINE HCl CAP 25 MG CAPSULE PO (20:48)
[2020-11-15] MEDS: ATORVASTATIN 40 MG TABLET PO (20:49)
[2020-11-15 21:07] LABS: Glucose Point of Care 106 mg/dl (65-105)
[2020-11-16] VITALS (8 sets, daily range): BP systolic 126–144; BP diastolic 51–58; PULSE 60–81; RESP 14–16; TEMP 36.2–36.5; O2SAT 99–100
[2020-11-16] MEDS: ACETAMINOPHEN 325 MG TABLET 650 MG PO (01:27)
[2020-11-16] MEDS: SODIUM CHLORIDE 0.9% IV 1,000 ML 75 ML IV CONT (03:15)
[2020-11-16 07:30] LABS: Glucose Point of Care 84 mg/dl (65-105)
[2020-11-16] MEDS: FLUTICASONE PROPIONATE 0.05% NA SPR 16 GM BTL (*BKC) 2 SPRAY NASAL (09:28)
[2020-11-16] MEDS: HEPARIN SODIUM 5,000 UNITS/ML VIAL 5000 UNITS SUB-Q (09:28)
[2020-11-16] MEDS: CYANOCOBALAMIN 1,000 MCG TABLET 1000 MCG PO (09:29)
[2020-11-16] MEDS: FOLIC ACID 1 MG TABLET PO (09:29)
[2020-11-16] MEDS: AMIODARONE HCL 200 MG TABLET PO (09:29)
[2020-11-16] MEDS: TAMSULOSIN HCL 0.4 MG CAPSULE PO (09:29)
[2020-11-16] MEDS: ASPIRIN 81 MG CHEWABLE TABLET PO (09:29)
[2020-11-16] MEDS: carvediloL 12.5 MG TABLET PO (09:33)
[2020-11-16 10:45] LABS: Hematocrit 25.3 % (42.0-52.0); Hemoglobin 7.9 g/dL (14.0-18.0); Mean Corpuscular HGB Conc 31.2 g/dl (32-36); Mean Corpuscular Hemoglobin 28.5 pg (26-34); Mean Corpuscular Volume 91.3 fl (80-100); Mean Platelet Volume 9.9 fl (7.4-10.4); Platelet Count Result 138 k/mm3 (150-375); Red Blood Count 2.77 M/mm3 (4.6-6.20); Red Cell Distribution Width 14.6 % (11.5-14.5); White Blood Count 5.3 K/mm3 (4.5-10.0)
[2020-11-16 10:56] LABS: Anion Gap 7 mmol/L (8-16); Blood Urea Nitrogen 14 mg/dL (9-20); Calcium 8.9 mg/dL (8.4-10.2); Carbon Dioxide 19 mmol/L (22-30); Chloride 111 mmol/L (98-107); Estimated CRCL calculation 45 ml/min; Estimated Glomerular Filt Rate 59; Glucose 137 mg/dL (65-110); Potassium 3.5 mmol/L (3.4-5.0); Sodium 137 mmol/L (137-145)
[2020-11-16 11:47] LABS: Glucose Point of Care 121 mg/dl (65-105)
[2020-11-16 14:25] LABS: Albumin 3.3 g/dL (3.8-4.8); Alpha 1 Globulin 0.4 g/dL (0.2-0.3); Alpha 2 Globulin 1.1 g/dL (0.5-0.9); Beta 1 Globulin 0.4 g/dL (0.4-0.6); Gamma Globulin 0.7 g/dL (0.8-1.7); Protein, Total 6.2 g/dL (6.1-8.1)
[2020-11-16 15:38] LABS: Vitamin D 1,25 (OH)2 Total 47 pg/mL (18-72); Vitamin D2 1,25 (OH)2 <8 pg/mL; Vitamin D3 1,25 (OH)2 47 pg/mL
[2020-11-16 23:54] LABS: Angiotensin Converting Enzyme 24 U/L (9-67)
[2020-11-17 08:56] LABS: Calcium/Creatinine Ratio, Ur 679 mg/g creat (10-240); Creatinine, Random Urine 29 mg/dL (20-320); Total Protein/Creatinine Ratio 621 mg/g creat (22-128); Urine Creatinine, Random 28 mg/dL (20-320)
--- NOTE | 2020-11-18 14:53 | PM.DS ---
DS: Admitting Diagnosis Admitting Diagnosis nausea and vomiting DS: Discharge Diagnosis Discharge Diagnosis (1) GLORIA (acute kidney injury): Code(s): N17.9 - Acute kidney failure, unspecified Status: Acute Assessment and Plan: Improved s/p IVF Likely 2/2 dehydration Cr 1.4 today Avoid nephrtoxins Renal US-->normal kidneys with no evidence of obstructive uropathy. It did show enlarged prostate (2) Urinary tract infection: Qualifiers: Hematuria presence: without hematuria Urinary tract infection type: site unspecified Qualified Code(s): N39.0 - Urinary tract infection, site not specified Code(s): N39.0 - Urinary tract infection, site not specified Status: Acute Assessment and Plan: CT of A/P showed air in the bladder which could represent an infection or possible fistula US of pelvis--> Normal kidneys and bladder; marked prostatomegaly PCP ordered a PET scan scheduled for today, will need to reschedule UC +E coli which is pansensitive S/p Zosyn Continue with ceftriaxone He will be discharged home on p.o. antibiotic x5 days (3) Acute hyperkalemia: Code(s): E87.5 - Hyperkalemia Status: Acute Assessment and Plan: resolved Resume home supplement as directed Continue with IVF S/p Kayexalate Check BMP (4) Hyperlipidemia: Qualifiers: Hyperlipidemia type: mixed hyperlipidemia Qualified Code(s): E78.2 - Mixed hyperlipidemia Code(s): E78.5 - Hyperlipidemia, unspecified Status: Chronic Assessment and Plan: Continue with atorvastatin (5) Hypercalcemia: Code(s): E83.52 - Hypercalcemia Status: Acute Assessment and Plan: Thyroid level wnl Continue to monitor Continue IV fluids today. vitamin-D level PTH wnl protein electrophoresis-->Serum free light chains or urine immunofixation should be considered if plasma cell dyscrasias are a possible clinical diagnosis GEORGE wnl He was recently admitted to [facility] with hypercalcemia as well. 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 A1c 5.8 (9) Essential hypertension: Code(s): I10 - Essential (primary) hypertension Status: Chronic Assessment and Plan: Stable Continue with Coreg (10) Ventricular tachycardia: Code(s): I47.2 - Ventricular tachycardia Status: Acute Assessment and Plan: status post AICD Followed by cardiology in [place] continue amiodarone and Coreg (11) Obstructive sleep apnea on CPAP: Code(s): G47.33 - Obstructive sleep apnea (adult) (pediatric); Z99.89 - Dependence on other enabling machines and devices Status: Acute Assessment and Plan: Patient no longer uses a CPAP machine since weight loss PT/OT DS: Summary Hospital Course Hospital Course: 75-year-old man presented to the ED with complaints of nausea vomiting. He reported associated loose stools but denied diarrhea. He denied any recent sick contacts and he has been vaccinated for COVID-19. Found with WBC 12; H/H 11.1/34.4. Na+ 130; K+ 6.1; BUN/Cr 65/1.6 IVF and IV Zofran; calcium gluconate; D50; sodium bicarb, regular insulin were initiated in ED. CT of A/P showe
== END 2020-11-16 16:35 | disposition home health service (06) | DRG 683 ==
LOC: ANHED 11:52 → ANH3MEDSUR 13:25
PROVIDERS: Nurse Practitioner; Nurse Practitioner Adult Health; Admitting Provider Internal Medicine; Emergency Provider Emergency Medicine; PCP Internal Medicine; Visit Provider Internal Medicine Critical Care Medicine
DX: N17.9 Acute kidney failure, unspecified (principal); N39.0 Urinary tract infection, site not specified; E87.1 Hypo-osmolality and hyponatremia; I47.2 Ventricular tachycardia; E87.2 Acidosis; B96.20 Unspecified Escherichia coli [E. coli] as the cause of diseases classified elsewhere; E11.9 Type 2 diabetes mellitus without complications; I11.0 Hypertensive heart disease with heart failure; I50.9 Heart failure, unspecified; E87.5 Hyperkalemia; E83.52 Hypercalcemia; N40.0 Benign prostatic hyperplasia without lower urinary tract symptoms; G47.33 Obstructive sleep apnea (adult) (pediatric); Z79.82 Long term (current) use of aspirin; Z79.84 Long term (current) use of oral hypoglycemic drugs; Z95.810 Presence of automatic (implantable) cardiac defibrillator
CPT/HCPCS: 36415; 71045; 74177; 76775; 80048; 80053; 81001; 82164; 82306; 82310; 82330; 82570; 82652; 82948; 83036; 83519; 83735; 83970; 84100; 84155; 84156; 84165; 84166; 84443; 85025; 85027; 87040; 87077; 87086; 87088; 87186; 93005; 96361; 96365; 96375; 96376; 97110; 97116; 97161; 97165; 97530; 99285; A9270; G0378; J0131; J0610; J0696; J1644; J1815; J2405; J2543; J7030; Q9967

== ENCOUNTER → 2021-09-05 07:49 | Outpatient (CLI) | payer MEDICARE, SELFPAY ==
--- NOTE | ~2021-09-05 | US_ITS ---
EXAMINATION: US abdomen limited DATE: 09/05/2021 09:12 INDICATION: Iron deficiency anemia TECHNIQUE: Multiple grayscale and Doppler ultrasound images of the abdomen were obtained. COMPARISON: None available FINDINGS: The liver is normal with normal echogenicity and echotexture. No surface nodularity. There are multiple stones in the gallbladder. There is no gallbladder wall thickening or pericholecystic fl uid. There was no sonographic Fleming sign. The normal common bile duct measures 3 mm. The normal appe aring spleen measures 11.7 cm. IMPRESSION: 1. Cholelithiasis without evidence of cholecystitis. Reviewed, dictated and finalized at location A.
== END ==
DX: D50.9 Iron deficiency anemia, unspecified (principal); K80.20 Calculus of gallbladder without cholecystitis without obstruction
CPT/HCPCS: 76705

== ENCOUNTER 2022-02-27 07:37 | Outpatient (CLI) | payer MEDICARE, SELFPAY ==
--- NOTE | 2022-02-28 19:09 | WPDHOMESLEEP ---
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 The patient denies awakening from sleep short of breath. He occasionally awakens at night with heartburn, belching or cough. He denies snoring loud enough that others complain. He occasionally has trouble sleeping when he has a cold. He denies waking up gasping for air throughout the night. He denies having breathing problems at night observed by himself or others. He denies sweating excessively at night. He rarely has heart palpitations or irregular heartbeats during the night. He frequently falls asleep during the day but never while driving. He denies sleep paralysis, cataplexy and hypnagogic / hypnopompic hallucinations. He denies having trouble at school or work due to sleepiness. He denies feeling afraid of going to sleep. He denies having nightmares. He occasionally remembers his dreams. He occasionally has thoughts racing through his mind. He denies feeling sad, depressed or anxious. He rarely has muscular tension. He occasionally notices parts of his body jerk. He denies kicking during the night. He denies having crawling and aching feelings in his legs but occasionally has leg pain during the night. the patient denies grinding his teeth during sleep awakening with morning jaw pain. He is frequently bothered by pain during the day but never awakened by pain during the night. He occasionally wakes up feeling stiff in the morning. He occasionally wakes up with sore or achy muscles. He occasionally wakes up with pain in the neck, spine or other joints. He goes to bed at 8:30 p.m. on both weekdays and weekends. It takes him 30 minutes to 2 hours to fall asleep. He wakes up 4 times throughout the night for unknown reasons. If he awakens, he was in to the radio, watch television, read or drink a soda. It takes him 15-30 minutes to fall back asleep. He wakes up at 5:00 a.m. on both weekdays and weekends. He typically gets 7-8 hours of sleep per night. He will stay in bed for 30 minutes to an hour after waking up in the morning. He does not engage in physical exercise before bedtime. He will occasionally read before falling asleep. He watches television before falling asleep. He will occasionally take a nap in the afternoon or the evening and is refreshing. He drinks 2 caffeinated beverages per day. He denies tobacco, alcohol and recreational drug use. [facility] Past Medical History Medical History Benign essential tremor BPH (benign prostatic hyperplasia) Congestive heart failure Echocardiogram in January 2014 was a very technically difficult study showing mild left ventricular enlargement, moderate anterior and septal hypokinesis with an overall ejection fraction estimated 45 to 50%, and mild mitral and tricuspid valve regurgitation. Essential hypertension Hyperlipidemia Obstructive sleep apnea on CPAP The patient no longer uses a CPAP machine since he has lost weight. Osteoarthritis Rheumatoid arthritis Type 2 diabetes mellitus Surgical History Surgical History History of bilateral hip replacements History of cardiac catheterization (~2014) Performed at [facility] in [place]. Reportedly clean coronary arteries. History of left
[2022-02-28 19:12] VITALS: BMI 26.9
--- NOTE | 2023-03-28 09:39 | SLEEP ---
pt is now seeing Dr. Antonio
== END 2022-02-28 10:31 | disposition home or self-care (01) ==
LOC: ANHCSM 07:39
PROVIDERS: Visit Provider Internal Medicine Pulmonary Disease
DX: G47.39 Other sleep apnea (principal); R06.3 Periodic breathing; G47.33 Obstructive sleep apnea (adult) (pediatric)
CPT/HCPCS: 95806

== ENCOUNTER 2022-04-19 13:45 | Emergency (ER) | payer MEDICARE, SELFPAY ==
[2022-04-19 13:48] VITALS: BP 136/67; PULSE 84; RESP 16; TEMP 36.5; O2SAT 97
--- NOTE | 2022-04-19 17:59 | PC.NURSE ---
pt leaving d/t wait time
== END 2022-04-19 17:59 | disposition left against medical advice (07) ==
LOC: ANHED 18:09
DX: R42 Dizziness and giddiness (principal)
CPT/HCPCS: 99199